=== PATIENT | male | born 1950 | race Caucasian/White ===

== ENCOUNTER 2019-04-18 17:26 | Inpatient (IN) | payer MEDICAID ==
[2019-04-17 22:30] VITALS: BMI 26.1
[~2019-04-18] VITALS: Ht 170.2 cm; Wt 80.5 kg
[~2019-04-18 17:26] MED LIST: ATOR-2 PO; CARV12.598 PO; CLOP75TA27 PO; HYDR-3670 PO; HYDR-4011 PO; ISOS10TA2 PO; LAS20 PO; PANT40SU PO; PANT40TA4 PO; PRED10TA PO; RIVA15TA PO
[2019-04-18 17:28] VITALS: Ht 170.2 cm; Wt 80.5 kg
--- NOTE | 2019-04-18 17:37 | ERD ---
ER Documentation Chief Complaint Chief Complaint Left knee pain HPI The patient is a 69-year-old male, presenting to the ER because of left knee pain for the last 3 weeks, seen at multiple ER and was given Medrol Dosepak with good response. However, when he finished the medication, the pain came back. He is unable to ambulate for the last 2 days because of the pain on the left knee, complains of bilateral foot pain today. He had similar symptoms previously from gouty attack, denies fever, chills, neck pain, chest pain, abdominal pain, vomiting, dysuria, diarrhea. He denies smoking or drinking, denies any trauma Past medical history: Gout, history of CHF, atrial fibrillation, right inguinal hernia, dyslipidemia, hypertension, chronic kidney disease Past surgical history: 3 stent PCI in March 2018 ROS All systems reviewed and are negative except as per history of present illness. Medications Home Meds Active Scripts Hydrocodone/Acetaminophen (Dalton 5-325 Tablet) 1 Each Tablet, 1 TAB PO Q6H PRN for PAIN, #7 TAB Prov:CEM GRIMES MD 04/18/19 Allergies Allergies: Coded Allergies: acetaminophen (Verified Allergy, Unknown, 04/18/19) hydrocodone (Verified Allergy, Unknown, 04/18/19) lisinopril (Verified Allergy, Unknown, 04/18/19) losartan (Verified Allergy, Unknown, 04/18/19) morphine (Verified Allergy, Unknown, 04/18/19) tramadol (Verified Allergy, Unknown, 04/18/19) Physical Exam Vitals Vital Signs Date Temp Pulse Resp B/P (MAP) Pulse Ox O2 O2 Flow FiO2 Time Delivery Rate 04/18/19 92 20 108/55 99 Room Air 18:32 (72) 04/18/19 98.6 80 18 146/81 98 17:28 (102) Physical Exam Const: No acute distress. Head: Atraumatic. Eyes: Normal Conjunctiva. ENT: Normal External Ears, Nose and Mouth. Neck: Full range of motion. No meningismus. Resp: Clear to auscultation bilaterally. Cardio: Regular rate and rhythm. Abd: Soft, non distended, normal bowel sounds, non tender. Skin: No petechiae or rashes. Back: No midline or flank tenderness. Ext: No cyanosis, or edema. Left knee is edematous/erythematous, no calf tenderness. Right medial foot is with vague tenderness, no edema/erythematous. Left foot is with vague tenderness, no calf tenderness Neur: Awake and alert. No focal deficit Psych: Normal Mood and Affect. Result Diagram: 04/18/19174204/18/191742 Results 24 hrs Laboratory Tests Test 04/18/19 17:41 04/18/19 17:43 POC Venous Lactate 1.3 mmol/L White Blood Count 9.0 10^3/ul Red Blood Count 5.09 10^6/ul Hemoglobin 15.3 g/dl Hematocrit 45.6 % Mean Corpuscular Volume 89.6 fl Mean Corpuscular Hemoglobin 30.1 pg Mean Corpuscular Hemoglobin Concent 33.6 g/dl Red Cell Distribution Width 11.9 % Platelet Count 263 10^3/UL Mean Platelet Volume 9.3 fl Immature Granulocytes % 0.600 % Neutrophils % 79.5 % Lymphocytes % 13.3 % Monocytes % 5.8 % Eosinophils % 0.6 % Basophils % 0.2 % Nucleated Red Blood Cells % 0.0 /100WBC Immature Granulocytes # 0.050 10^3/ul Neutrophils # 7.1 10^3/ul Lymphocytes # 1.2 10^3/ul Monocytes # 0.5 10^3/ul Eosinophils # 0.1 10^3/ul Basophils # 0.0 10^3/ul Nucleated Red Blood Cells # 0.0 10^3/ul Erythrocyte Sedimentation Rate 36 mm/Hr Sodium Level 135 mmol/L Potassium Level 4.2 mmol/L Chloride Level 98 mmol/L Carbon Dioxide Level 26 mmol/L Anion Gap 11 Blood Urea Nitrogen 27 mg/dl Creatinine 1.44 mg/dl Est Glomerular Filtrat Rate mL/min mL/min Glucose Level 149 mg/dl Uric Acid 8.9 mg/dl Calcium Level 9.5 mg/dl Current Medications Medications Dose Sig/Sheldon Start Time Status Last (Trade) Ordered Route PRN Stop Time Admin Dose Reason Admin 0.5 mg ONCE STAT 04/18/19 DC 04/18/19 Hydromorphone IV 17:46 18:38 HCl 04/18/19 17:49 (Dilaudid) Procedures/MDM MEDICAL MAKING DECISION: The patient is a 69-year-old male, presenting with acute gouty arthritis of the left knee, bilateral feet pain of unclear etiology. He was treated with Dilaudid 0.5 mg IV for pain with good response. He is unable to ambulate, therefore declined to go home, wanted to be admitted to a assisted facility The differential diagnoses considered include but are not limited to gouty arthritis, septic arthritis, effusion, sprain, strain, internal derangement Departure Diagnosis: Primary Impression: Gout attack Additional Impression: Pain in both feet Condition: Stable Comments I discussed the findings with the patient. I notified the patient with Dr. Molina at 8 PM via [employer] , who was made aware of the lab, the treatment, the patient condition. The patient is admitted to [facility] Disclaimer: Inadvertent spelling and grammatical errors are likely due to EHR/dictation software use and do not reflect on the overall quality of patient care. Also, please note that the electronic time recorded on this note does not necessarily reflect the actual time of the patient encounter. CEM GRIMES MD Apr 18, 2019 17:37
[2019-04-18] MEDS ORDERED: HYDROmorphONE 0.5 MG/0.5 ML SYG IV STA (17:46)
--- NOTE | 2019-04-18 20:37 | HP ---
Date/Time of Note Date/Time of Note DATE: 04/18/19 TIME: 20:36 Assessment/Plan VTE Prophylaxis SCD applied (from Nsg): Yes Pharmacological prophylaxis: NA/contraindicated Pharm contraindication: low risk/ambulating Lines/Catheters IV Catheter Type (from Nrsg): Saline Lock Assessment/Plan Hospital Course This is a 69-year-old male being admitted to the [facility] floor for: 1. acute gout attack: Uric acid elevated at 8.9. Will check ESR. Given patient's CKD, will initiate the patient on prednisone 40 mg p.o. daily. We will hold patient's Plavix and Xarelto so that we can tap the left knee. Orthopedic surgery Dr. Frank has been consulted to help Left knee joint effusion. Consider initiation of allopurinol once his acute gout episode stabilized. check esr 2. ambulatory dysfunction: secondary to gout attack. Patient has significant pain of his left knee decreased range of motion secondary to effusion and pain. Prednisone at the current time. Orthopedic consultation for left knee tap. Consider MRI of the knee if indicated. 3. Large Left knee effusion: Orthopedic surgery consult for need to. Patient is afebrile. This is likely secondary to patient's acute gout attack. We will also hold Plavix and Xarelto at the current time. 4: Patient has a history of gout. Uric acid level 8.9. Continue prednisone, will need to initiate patient on allopurinol once acute phase stabilized. 5. History of CHF: Continue carvedilol, hydralazine, Isordil, statin. Will hold Lasix at the current time as this could be exacerbating his gout. He does not appear to be acutely decompensated. 6. Coronary artery disease: Patient status post stent. Will hold Plavix for left knee joint tap. Continue patient's home medications. 7. Atrial fibrillation: Continue rate controlled, continue carvedilol, will hold Xarelto 8 dyslipidemia: Continue statin 9 hypertension: Continue beta-joesph, will hold Lasix at the current time 10. chronic kidney disease: Monitor renal function. Avoid NSAIDs. 11 DVT GI prophylaxis: SCDs, Protonix (on steroids) Further treatment strategy will be implemented as per the clinical course Result Diagram: 04/18/19 1743 04/18/19 1743 Results 24hrs Laboratory Tests Test 04/18/19 17:41 04/18/19 17:43 POC Venous Lactate 1.3 White Blood Count 9.0 Red Blood Count 5.09 Hemoglobin 15.3 Hematocrit 45.6 Mean Corpuscular Volume 89.6 Mean Corpuscular Hemoglobin 30.1 Mean Corpuscular Hemoglobin Concent 33.6 Red Cell Distribution Width 11.9 Platelet Count 263 Mean Platelet Volume 9.3 Immature Granulocytes % 0.600 H Neutrophils % 79.5 H Lymphocytes % 13.3 L Monocytes % 5.8 Eosinophils % 0.6 Basophils % 0.2 Nucleated Red Blood Cells % 0.0 Immature Granulocytes # 0.050 H Neutrophils # 7.1 Lymphocytes # 1.2 Monocytes # 0.5 Eosinophils # 0.1 Basophils # 0.0 Nucleated Red Blood Cells # 0.0 Erythrocyte Sedimentation Rate 36 H Sodium Level 135 Potassium Level 4.2 Chloride Level 98 Carbon Dioxide Level 26 Anion Gap 11 Blood Urea Nitrogen 27 H Creatinine 1.44 H Est Glomerular Filtrat Rate mL/min Glucose Level 149 Uric Acid 8.9 H Calcium Level 9.5 HPI/ROS Admit Date/Time Admit Date/Time Hx of Present Illness Chief complaint: Left knee pain x3 weeks The patient is a 69-year-old male, presenting to the ER because of left knee pain for the last 3 weeks, patient was seen at [facility] ER earlier this month and had a left knee drainage which showed pseudogout. As the symptoms do not get better he returned again to the emergency department and was given a Medrol Dosepak. He states that he did have improvement of his symptoms however after the medications were completed his pain came back. He reports that for the last few days it has been difficult for him to get up as he has a left knee difficult to move. He is not able to ambulate. He does also have left great toe pain and right medial foot pain. He denies any chest pain nausea vomiting or diarrhea. Denies any fevers. Does have a history of gout. He has adjusted his diet. He used to be on allopurinol in the past but was advised only to continue taking the medication until the prescription ended. Allergies: Acetaminophen, hydrocodone, lisinopril, losartan, morphine, tramadol Medications: Atorvastatin 80 mg p.o. daily Carvedilol 12.5 mg p.o. daily Plavix 75 mg p.o. daily Lasix 20 mg p.o. daily Hydralazine 10 mg p.o. every 8 hours as needed Highland 5-325 mg p.o. every 6 hours as needed Isordil 10 mg p.o. 3 times daily Protonix 40 mg p.o. daily Xarelto 15 mg p.o. daily Protonix 40 mg p.o. daily ROS Const: As per HPI Eyes : No pain discharge or redness or change in visual acuity ENT: No pain, sore throat, congestion, congestion, dysphagia or discharge Respiratory: No shortness of breath, cough, sputum, wheezing, or pleuritic pain Cardiovascular: No chest pain, palpitation, PND, or edema GI : no change in appetite, abdominal pain, nausea, vomiting, diarrhea, constipation, or change in the color his stool Genitourinary: No dysuria, hematuria, flank pain , discharge or CVA tenderness Musculoskeletal: As per HPI Skin: As per HPI Neuro: No headache, dizziness, syncope, seizure, focal weakness Endocrine: No polyuria, polydipsia, temperature intolerance Psych: No hallucination, depression, anxiety or suicidal ideation PMH/Family/Social Past Medical History Gout, history of CHF, atrial fibrillation, right inguinal hernia, dyslipidemia, hypertension, chronic kidney disease Coded Allergies: acetaminophen (Verified Allergy, Unknown, 04/18/19) hydrocodone (Verified Allergy, Unknown, 04/18/19) lisinopril (Verified Allergy, Unknown, 04/18/19) losartan (Verified Allergy, Unknown, 04/18/19) morphine (Verified Allergy, Unknown, 04/18/19) tramadol (Verified Allergy, Unknown, 04/18/19) Past Surgical History 3 stent PCI in March 2018 Family History Significant Family History: no pertinent family hx Social History Alcohol Use: none Smoking Status: Never smoker Drug Use: none Exam/Review of Systems Vital Signs Vitals Vital Signs Date Temp Pulse Resp B/P (MAP) Pulse Ox O2 O2 Flow FiO2 Time Delivery Rate 04/18/19 92 20 108/55 99 Room Air 18:32 (72) 04/18/19 98.6 17:28 Exam Exam General: Patient is a pleasant male currently lying in bed in no acute distress HEENT: Atraumatic, normocephalic. The pupils are equal, round and reactive. Extraocular motor are intact Neck: Supple with full range of motion. No rigidity or meningismus Chest: Nontender Lungs: Clear to auscultation bilaterally no crackles rales or wheezing Heart: Normal S1-S2, Regular rhythm and rate. No murmur, S3, or S4 Abdomen: Soft , nontender, nondistended , bowel sounds are present. No guarding no rebound tenderness , No masses or organomegaly. No costovertebral temporal angle mass Extremities: Left knee swelling, tenderness to touch, hot to touch Skin: Left knee swelling and tenderness and hot to touch, left great toe mild swelling and warmth noted Neurologic: Normal mental status, speech normal, cranial nerves II through XII are intact, motor and sensory are intact, no focal weakness Additional Comments PROCEDURE: XR foot CLINICAL INDICATION: Pain TECHNIQUE: AP, oblique and lateral views of the right foot COMPARISON: None FINDINGS: Mineralization is intact. No displaced fracture identified. Severe first MTP cartilage space narrowing with subchondral sclerosis and cystic change and marginal osteophyte formation. Hypertrophic change at the second MTP joint. Mild soft tissue fullness at the first MTP joint. Additional soft tissue fullness at the first IP joint with mild nonspecific cystic change in the medial head of the first proximal phalanx. Small calcaneal spur at the origin of the plantar fascia and small calcaneal enthesophyte at the insertion of Achilles tendon. Soft tissue fullness in the dorsum of the forefoot. Enthesopathy at the base of the fifth metatarsal. IMPRESSION: 1. No displaced fracture identified. 2. Severe first MTP osteoarthritis. 3. Enthesopathy at the base of the fifth metatarsal. 4. Mild soft tissue fullness in the first IP joint and nonspecific cystic change in the medial head of the first proximal phalanx more likely degenerative, although gout could potentially have similar appearance in the right clinical setting. 5. Additional degenerative changes as above. RPTAT: PP Physician Abram Date Time Electronically viewed and signed by Physician Abram on 04/18/2019 19:18 RG/ CC: CEM GRIMES MD [id number] PROCEDURE: Left knee x-ray CLINICAL INDICATION: PAIN TECHNIQUE: AP, lateral and oblique views of the left knee were obtained. COMPARISON: None FINDINGS: There is normal mineralization. No displaced fracture or dislocation is seen. Superior patellar enthesophyte. Mild osteophytic ridging in the patellofemoral and medial tibio-femoral joints. Faint lateral tibio-femoral chondrocalcinosis. There is large joint effusion. Prepatellar soft tissue swelling. Vascular calcifications. IMPRESSION: 1. Prepatellar soft tissue swelling. 2. Large joint effusion. 3. No displaced fracture or advanced degenerative change as above. 4. Follow-up MRI may be obtained if clinically indicated. RPTAT: PP Physician Abram Date Time Electronically viewed and signed by Brian Alejandro Physician on 04/18/2019 19:19 RG/ CC: CEM GRIMES MD [id number] OLIMPIA COE Apr 18, 2019 20:37
[2019-04-18] MEDS ORDERED: DOCUSATE SODIUM 100 MG CAP PO PRN (21:00)
[2019-04-18] MEDS ORDERED: NACL 0.9% 3 ML SYG IV SCH (21:00)
[2019-04-18] MEDS ORDERED: ACETAMINOPHEN 325 MG TAB PO PRN (21:00)
[2019-04-18] MEDS ORDERED: BISACODYL (EC) 5 MG TAB PO PRN (21:00)
[2019-04-18] MEDS ORDERED: ONDANSETRON 4 MG INJ IV PRN (21:00)
[2019-04-18] MEDS: predniSONE 20 MG TAB PO SCH (21:05)
[2019-04-18 22:33] VITALS: BP 125/59; PULSE 71; RESP 18
[2019-04-18] MEDS ORDERED: METOPROLOL (XL) 25 MG TAB PO SCH (23:00)
[2019-04-19] MEDS: ATORVASTATIN 80 MG TAB PO SCH ×2 (00:26→21:20)
[2019-04-19 01:42] VITALS: BP 117/61; PULSE 79; RESP 18
[2019-04-19] MEDS: PANTOPRAZOLE (EC) 40 MG TAB PO SCH (06:00)
[2019-04-19 07:28] VITALS: BP 129/69; PULSE 72; RESP 18
[2019-04-19] MEDS: predniSONE 20 MG TAB PO SCH (09:10)
[2019-04-19] MEDS: ISOSORBIDE DINITRATE 10 MG TAB PO SCH ×3 (09:12→21:21)
--- NOTE | 2019-04-19 14:02 | PN ---
Date/Time of Note Date/Time of Note DATE: 04/19/19 TIME: 13:48 Assessment/Plan VTE Prophylaxis Risk score (from [facility]0 risk: 4 SCD applied (from [facility]): Yes Pharmacological prophylaxis: other Pharm contraindication: other Lines/Catheters IV Catheter Type (from [facility] Saline Lock Urinary Cath still in place: No Assessment/Plan Assessment/Plan 1. Acute left knee arthritis with effusion, gout versus pseudogout, on prednisone and follow up with Dr. Frank, ?arthrocentesis 2. Acute kidney injury, improving, IVF 3. History of CHF: Continue carvedilol, hydralazine, Isordil 4. Coronary artery disease, s/p stents in 03/2018. Will hold Plavix for left knee joint tap. Continue patient's home medications. 5. Atrial fibrillation: Continue rate controlled, continue carvedilol, will hold Xarelto 6. Dyslipidemia: Continue statin 7. Hypertension, controlled 8. DVT GI prophylaxis: SCDs Result Diagram: 04/19/19 0456 04/19/19 0456 Results 24hrs Laboratory Tests Test 04/18/19 17:41 04/18/19 17:43 04/19/19 04:56 04/19/19 07:59 POC Venous Lactate 1.3 White Blood Count 9.0 7.9 Red Blood Count 5.09 4.88 Hemoglobin 15.3 14.8 Hematocrit 45.6 44.3 Mean Corpuscular 89.6 90.8 Volume Mean Corpuscular 30.1 30.3 Hemoglobin Mean Corpuscular 33.6 33.4 Hemoglobin Concent Red Cell 11.9 12.1 Distribution Width Platelet Count 263 242 Mean Platelet Volume 9.3 9.3 Immature 0.600 H 0.500 H Granulocytes % Neutrophils % 79.5 H 91.2 H Lymphocytes % 13.3 L 6.3 L Monocytes % 5.8 2.0 Eosinophils % 0.6 0.0 Basophils % 0.2 0.0 Nucleated Red Blood 0.0 0.0 Cells % Immature 0.050 H 0.040 H Granulocytes # Neutrophils # 7.1 7.2 Lymphocytes # 1.2 0.5 L Monocytes # 0.5 0.2 L Eosinophils # 0.1 0.0 Basophils # 0.0 0.0 Nucleated Red Blood 0.0 0.0 Cells # Erythrocyte 36 H Sedimentation Rate Sodium Level 135 135 Potassium Level 4.2 4.1 Chloride Level 98 102 Carbon Dioxide Level 26 23 Anion Gap 11 10 Blood Urea Nitrogen 27 H 30 H Creatinine 1.44 H 1.24 Est Glomerular Filtrat Rate mL/min Glucose Level 149 203 Uric Acid 8.9 H Calcium Level 9.5 9.1 Hemoglobin A1c 5.7 Magnesium Level 2.1 Total Bilirubin 1.4 H Direct Bilirubin 0.00 Indirect Bilirubin 1.4 H Aspartate Amino 21 Transf (AST/SGOT) Alanine 15 Aminotransferase (AL T/SGPT) Alkaline Phosphatase 78 Total Protein 6.3 Albumin 3.6 Globulin 2.70 Albumin/Globulin 1.33 Ratio Triglycerides Level 87 Cholesterol Level 124 LDL Cholesterol, 75 Calculated HDL Cholesterol 32 Cholesterol/HDL 3.8 Ratio Thyroid Stimulating 0.792 Hormone (TSH) Prothrombin Time 17.1 H Prothrombin Time 1.3 Ratio INR International 1.38 Normalized Ratio Activated 36.9 H Partial Thromboplast Time Subjective 24 Hr Interval Summary Free Text/Dictation left knee pain, no shortness of breath or chest pain Exam/Review of Systems Exam Vitals Vital Signs Date Temp Pulse Resp B/P (MAP) Pulse Ox O2 O2 Flow FiO2 Time Delivery Rate 04/19/19 98.6 72 18 129/69 98 Room Air 07:28 (89) Constitutional: alert, oriented, well developed Psych: no complaints, nl mood/affect Head: normocephalic, atraumatic Eyes: nl conjunctiva, EOMI, nl lids, PERRL ENMT: nl external ears & nose, nl lips & teeth, nl nasal mucosa & septum Neck: supple, non-tender Respiratory: clear to auscultation, normal air movement; No congested cough, No crackles/rales, No diminished breath sounds, No intercostal retraction, No labored breathing, No respirations, No tactile fremitus, No wheezing, No other Cardiovascular: nl pulses, irregular rhythm; No bruits, No diastolic murmur, No edema, No gallop, No jugular venous distention (JVD), No murmurs/extra sounds, No rub, No systolic murmur, No S3, No S4, No other Gastrointestinal: soft, nl liver, spleen Musculoskeletal: other (left knee swelling, warmth) Neurological: [employer]ICIAN II-XII intact, nl mental status, nl speech, nl strength Results Results 24hrs Laboratory Tests Test 04/18/19 17:41 04/18/19 17:43 04/19/19 04:56 04/19/19 07:59 POC Venous Lactate 1.3 White Blood Count 9.0 7.9 Red Blood Count 5.09 4.88 Hemoglobin 15.3 14.8 Hematocrit 45.6 44.3 Mean Corpuscular 89.6 90.8 Volume Mean Corpuscular 30.1 30.3 Hemoglobin Mean Corpuscular 33.6 33.4 Hemoglobin Concent Red Cell 11.9 12.1 Distribution Width Platelet Count 263 242 Mean Platelet Volume 9.3 9.3 Immature 0.600 H 0.500 H Granulocytes % Neutrophils % 79.5 H 91.2 H Lymphocytes % 13.3 L 6.3 L Monocytes % 5.8 2.0 Eosinophils % 0.6 0.0 Basophils % 0.2 0.0 Nucleated Red Blood 0.0 0.0 Cells % Immature 0.050 H 0.040 H Granulocytes # Neutrophils # 7.1 7.2 Lymphocytes # 1.2 0.5 L Monocytes # 0.5 0.2 L Eosinophils # 0.1 0.0 Basophils # 0.0 0.0 Nucleated Red Blood 0.0 0.0 Cells # Erythrocyte 36 H Sedimentation Rate Sodium Level 135 135 Potassium Level 4.2 4.1 Chloride Level 98 102 Carbon Dioxide Level 26 23 Anion Gap 11 10 Blood Urea Nitrogen 27 H 30 H Creatinine 1.44 H 1.24 Est Glomerular Filtrat Rate mL/min Glucose Level 149 203 Uric Acid 8.9 H Calcium Level 9.5 9.1 Hemoglobin A1c 5.7 Magnesium Level 2.1 Total Bilirubin 1.4 H Direct Bilirubin 0.00 Indirect Bilirubin 1.4 H Aspartate Amino 21 Transf (AST/SGOT) Alanine 15 Aminotransferase (AL T/SGPT) Alkaline Phosphatase 78 Total Protein 6.3 Albumin 3.6 Globulin 2.70 Albumin/Globulin 1.33 Ratio Triglycerides Level 87 Cholesterol Level 124 LDL Cholesterol, 75 Calculated HDL Cholesterol 32 Cholesterol/HDL 3.8 Ratio Thyroid Stimulating 0.792 Hormone (TSH) Prothrombin Time 17.1 H Prothrombin Time 1.3 Ratio INR International 1.38 Normalized Ratio Activated 36.9 H Partial Thromboplast Time Medications Medication Current Medications IV Flush (NS 3 ml) 3 ml PER PROTOCOL IV ; Start 04/18/19 at 21:00 Ondansetron HCl (Zofran Inj) 4 mg Q6H PRN IV NAUSEA/VOMITING; Start 04/18/19 at 21:00 Hydromorphone HCl (Dilaudid) 0.5 mg Q4H PRN IV .SEVERE PAIN 7-10; Start 04/18/19 at 21:00 Docusate Sodium (Colace) 100 mg Q12H PRN PO .CONSTIPATION; Start 04/18/19 at 21:00 Bisacodyl (Dulcolax) 5 mg DAILY PRN PO .CONSTIPATION; Start 04/18/19 at 21:00 Pantoprazole (Protonix Tab) 40 mg DAILY@06 PO ; Start 04/19/19 at 06:00 Prednisone (Prednisone) 40 mg DAILY PO Last administered on 04/19/19 09:10; Admin Dose 40 MG; Start 04/18/19 at 21:00; Stop 04/25/19 at 20:59 Atorvastatin Calcium (Lipitor) 80 mg HS PO Last administered on 04/19/19 00:26; Admin Dose 80 MG; Start 04/19/19 at 00:00 Carvedilol (Coreg) 12.5 mg BID PO Last administered on 04/19/19 09:12; Admin Dose 12.5 MG; Start 04/19/19 at 00:00 Isosorbide Dinitrate (Isordil) 10 mg TID PO Last administered on 04/19/19 13:27; Admin Dose 10 MG; Start 04/19/19 at 09:00 Hydralazine HCl (Apresoline) 10 mg Q8 PO Last administered on 04/19/19 13:27; Admin Dose 10 MG; Start 04/19/19 at 14:00 CATHERINE DIXON MD Apr 19, 2019 13:59
[2019-04-19 14:28] VITALS: BP 109/63; PULSE 55; RESP 18
[2019-04-19] MEDS ORDERED: PE/SHARK OIL/MO/PETROL 30 GM OINT PR PRN (17:00)
[2019-04-19] MEDS ORDERED: BETAMET NA PHOS/AC(6 MG/ML) 5ML INJ INJ ONE (19:00)
[2019-04-19] MEDS ORDERED: BUPIVACAINE 0.5%/EPI (SDV) 30 ML INJ INJ ONE (19:00)
[2019-04-19 19:10] VITALS: BP 139/80; PULSE 66; RESP 18
[2019-04-20 01:09] VITALS: BP 131/78; PULSE 78; RESP 18
[2019-04-20] MEDS: PANTOPRAZOLE (EC) 40 MG TAB PO SCH (06:51)
[2019-04-20] MEDS: HYDROmorphONE 0.5 MG/0.5 ML SYG IV PRN ×2 (06:57→20:40)
[2019-04-20 07:08] VITALS: BP 147/86; PULSE 75; RESP 15
[2019-04-20] MEDS: ISOSORBIDE DINITRATE 10 MG TAB PO SCH ×3 (09:02→21:51)
[2019-04-20] MEDS: predniSONE 20 MG TAB PO SCH (09:03)
--- NOTE | 2019-04-20 13:24 | PN ---
Date/Time of Note Date/Time of Note DATE: 04/20/19 TIME: 13:10 Assessment/Plan VTE Prophylaxis Risk score (from Ns)>0 risk: 4 SCD applied (from Ns): Yes Pharmacological prophylaxis: rivaroxaban Lines/Catheters IV [facility]from [facility] Saline Lock Urinary Cath still in place: No Assessment/Plan Assessment/Plan 1. Acute left knee arthritis with effusion, was diagnosed as pseudogout from recent arthrocentesis, s/p left knee injection on 04/19/2019, improving, taper down oral steroid 2. Acute kidney injury, improved 3. History of CHF: Continue carvedilol, hydralazine, Isordil 4. Coronary artery disease, s/p stents in 03/2018. resume plavix 5. Atrial fibrillation: Continue rate controlled, continue carvedilol, on Xarelto 6. Dyslipidemia: Continue statin 7. Hypertension, controlled 8. DVT GI prophylaxis: xarelto 9. PT today, D/C home tomorrow Result Diagram: 04/20/19 0437 04/20/19 0437 Results 24hrs Laboratory Tests Test 04/20/19 04:37 White Blood Count 11.8 #H Red Blood Count 4.54 L Hemoglobin 13.8 L Hematocrit 40.8 L Mean Corpuscular Volume 89.9 Mean Corpuscular Hemoglobin 30.4 Mean Corpuscular Hemoglobin Concent 33.8 Red Cell Distribution Width 11.9 Platelet Count 262 Mean Platelet Volume 9.3 Immature Granulocytes % 0.600 H Neutrophils % 90.7 H Lymphocytes % 5.1 L Monocytes % 3.5 Eosinophils % 0.0 Basophils % 0.1 Nucleated Red Blood Cells % 0.0 Immature Granulocytes # 0.070 H Neutrophils # 10.7 H Lymphocytes # 0.6 L Monocytes # 0.4 Eosinophils # 0.0 Basophils # 0.0 Nucleated Red Blood Cells # 0.0 Erythrocyte Sedimentation Rate 44 H Sodium Level 137 Potassium Level 4.1 Chloride Level 101 Carbon Dioxide Level 28 Anion Gap 8 Blood Urea Nitrogen 37 H Creatinine 1.19 Est Glomerular Filtrat Rate mL/min Glucose Level 168 Calcium Level 9.4 Subjective 24 Hr Interval Summary Free Text/Dictation left knee pain Exam/Review of Systems Exam Vitals Vital Signs Date Temp Pulse Resp B/P (MAP) Pulse Ox O2 O2 Flow FiO2 Time Delivery Rate 04/20/19 98.0 75 15 147/86 96 Room Air 07:08 (106) Intake and Output 04/19/19 04/19/19 04/20/19 1515:00 23:00 07:00 IntakeIntake Total 1080 ml 480 ml 400 ml OutputOutput Total 900 ml 200 ml 950 ml BalanceBalance 180 ml 280 ml -550 ml Constitutional: alert, oriented, well developed Head: normocephalic, atraumatic Eyes: nl conjunctiva, EOMI, nl lids ENMT: nl external ears & nose, nl lips & teeth, nl nasal mucosa & septum Neck: supple, non-tender Respiratory: clear to auscultation, normal air movement; No congested cough, No crackles/rales, No diminished breath sounds, No intercostal retraction, No labored breathing, No respirations, No tactile fremitus, No wheezing, No other Cardiovascular: regular rate and rhythm, nl pulses; No bruits, No diastolic murmur, No edema, No gallop, No irregular rhythm, No jugular venous distention (JVD), No murmurs/extra sounds, No rub, No systolic murmur, No S3, No S4, No other Gastrointestinal: soft, nl liver, spleen, non-tender Extremities: normal pulses, other (less swelling on left knee) Neurological: INSOLE AND OUTSOLE PREPARER II-XII intact, nl mental status, nl speech, nl strength Results Results 24hrs Laboratory Tests Test 04/20/19 04:37 White Blood Count 11.8 #H Red Blood Count 4.54 L Hemoglobin 13.8 L Hematocrit 40.8 L Mean Corpuscular Volume 89.9 Mean Corpuscular Hemoglobin 30.4 Mean Corpuscular Hemoglobin Concent 33.8 Red Cell Distribution Width 11.9 Platelet Count 262 Mean Platelet Volume 9.3 Immature Granulocytes % 0.600 H Neutrophils % 90.7 H Lymphocytes % 5.1 L Monocytes % 3.5 Eosinophils % 0.0 Basophils % 0.1 Nucleated Red Blood Cells % 0.0 Immature Granulocytes # 0.070 H Neutrophils # 10.7 H Lymphocytes # 0.6 L Monocytes # 0.4 Eosinophils # 0.0 Basophils # 0.0 Nucleated Red Blood Cells # 0.0 Erythrocyte Sedimentation Rate 44 H Sodium Level 137 Potassium Level 4.1 Chloride Level 101 Carbon Dioxide Level 28 Anion Gap 8 Blood Urea Nitrogen 37 H Creatinine 1.19 Est Glomerular Filtrat Rate mL/min Glucose Level 168 Calcium Level 9.4 Medications Medication Current Medications IV Flush (NS 3 ml) 3 ml PER PROTOCOL IV ; Start 04/18/19 at 21:00 Ondansetron HCl (Zofran Inj) 4 mg Q6H PRN IV NAUSEA/VOMITING; Start 04/18/19 at 21:00 Hydromorphone HCl (Dilaudid) 0.5 mg Q4H PRN IV .SEVERE PAIN 7-10 Last administered on 04/20/19 06:57; Admin Dose 0.5 MG; Start 04/18/19 at 21:00 Docusate Sodium (Colace) 100 mg Q12H PRN PO .CONSTIPATION; Start 04/18/19 at 21:00 Bisacodyl (Dulcolax) 5 mg DAILY PRN PO .CONSTIPATION; Start 04/18/19 at 21:00 Pantoprazole (Protonix Tab) 40 mg DAILY@06 PO Last administered on 04/20/19 06:51; Admin Dose 40 MG; Start 04/19/19 at 06:00 Prednisone (Prednisone) 40 mg DAILY PO Last administered on 04/20/19 09:03; Admin Dose 40 MG; Start 04/18/19 at 21:00; Stop 04/25/19 at 20:59 Atorvastatin Calcium (Lipitor) 80 mg HS PO Last administered on 04/19/19at 2 1:20; Admin Dose 80 MG; Start 04/19/19 at 00:00 Carvedilol (Coreg) 12.5 mg BID PO Last administered on 04/20/19 09:03; Admin Dose 12.5 MG; Start 04/19/19 at 00:00 Isosorbide Dinitrate (Isordil) 10 mg TID PO Last administered on 04/20/19 09:02; Admin Dose 10 MG; Start 04/19/19 at 09:00 Hydralazine HCl (Apresoline) 10 mg Q8 PO Last administered on 04/20/19 06:52; Admin Dose 10 MG; Start 04/19/19 at 14:00 Phenyleph/Shark Oil/Min Oil/Petrol (Formulation R Oint) 1 applic PRN PRN [place] bowel movment; Start 04/19/19 at 17:00 CATHERINE DIXON MD Apr 20, 2019 13:21
[2019-04-20 15:03] VITALS: BP 117/71; PULSE 73; RESP 16
[2019-04-20 19:10] VITALS: BP 138/67; PULSE 70; RESP 20
[2019-04-20] MEDS: ATORVASTATIN 80 MG TAB PO SCH (21:53)
[2019-04-20] MEDS: CARBOXYMETHYLCELLULOSE 0.5% 0.4 ML OPH BOTH EYES PRN (23:11)
[2019-04-21 02:00] VITALS: BP 117/65; PULSE 62; RESP 18
[2019-04-21 06:40] VITALS: BP 131/82; PULSE 60; RESP 16
[2019-04-21] MEDS: PANTOPRAZOLE (EC) 40 MG TAB PO SCH (06:43)
[2019-04-21 08:21] VITALS: BP 127/78; PULSE 62; RESP 18
[2019-04-21] MEDS: ISOSORBIDE DINITRATE 10 MG TAB PO SCH ×2 (08:50→12:56)
[2019-04-21] MEDS ORDERED: CLOPIDOGREL 75 MG TAB GTB SCH (09:00)
[2019-04-21] MEDS ORDERED: predniSONE 20 MG TAB PO SCH ×2 (09:00)
--- NOTE | 2019-04-21 10:45 | PN ---
Date/Time of Note Date/Time of Note DATE: 04/21/19 TIME: 10:44 Assessment/Plan VTE Prophylaxis Risk score (from Ns)>0 risk: 2 SCD applied (from Ns): Yes Pharmacological prophylaxis: rivaroxaban Lines/Catheters IV Catheter Type (from Nrs): Saline Lock Urinary Cath still in place: No Assessment/Plan Hospital Course SUBJECTIVE: No acute distress. Patient has been ambulating in the room. OBJECTIVE: Vital signs-see below PHYSICAL EXAM: Constitutional: Adequately built,not in acute distress. HEENT: Head atraumatic and normocephalic. Eyes: Extraocular muscles intact. Anicteric sclerae. Pupils equal bilaterally, reactive to light. NECK: Supple without lymph node. CHEST: Clear and good breath sounds equally. No wheezing. No rhonchi. HEART: S1, S2. Regular rate and rhythm. ABDOMEN: Soft/non tender with no rebound tenderness. Bowel sounds were present. EXTREMITIES: No cyanosis, clubbing or edema. NEUROLOGIC: Alert and oriented x3. No focal deficit. No sensory deficit. PSYCHOSOCIAL: No signs of depression. INTEGUMENTARY: No open wounds. ASSESSMENT AND PLAN:69 yp M w/recent L knee pseudogout, admitted w/L knee pain. Acute left knee arthritis with effusion, was diagnosed as pseudogout from recent arthrocentesis, s/p left knee injection on 04/19/2019 - Improved -taper down oral steroid -PT Acute kidney injury -resolved CHF -compensated - Continue carvedilol, hydralazine, Isordil Coronary artery disease, s/p stents in 03/2018 -conr. plavix/statin/bb Atrial fibrillation -stable -continue carvedilol, on Xarelto Dyslipidemia - Continue statin Hypertension - controlled -con.antihypertensives DVT GI prophylaxis: xarelto Disposition: Discharge planning with home health physical therapy, frontwheel walker with patient's on crutches available at home. Patient was seen in collaboration with Dr. Portillo. Result Diagram: 04/20/197 04/20/19 0437 Results 24hrs Laboratory Tests Test 04/20/19 23:08 Bedside Glucose 189 Exam/Review of Systems Exam Vitals Vital Signs Date Temp Pulse Resp B/P (MAP) Pulse Ox O2 O2 Flow FiO2 Time Delivery Rate 04/21/19 98.1 62 18 127/78 96 Room Air 08:21 (94) Intake and Output 04/20/19 04/20/19 04/21/19 1515:00 23:00 07:00 IntakeIntake Total 580 ml 500 ml 650 ml OutputOutput Total 300 ml 600 ml 1000 ml BalanceBalance 280 ml -100 ml -350 ml Results Results 24hrs Laboratory Tests Test 04/20/19 23:08 Bedside Glucose 189 Medications Medication Current Medications IV Flush (NS 3 ml) 3 ml PER PROTOCOL IV ; Start 04/18/19 at 21:00 Ondansetron HCl (Zofran Inj) 4 mg Q6H PRN IV NAUSEA/VOMITING; Start 04/18/19 at 21:00 Hydromorphone HCl (Dilaudid) 0.5 mg Q4H PRN IV .SEVERE PAIN 7-10 Last administered on 04/20/19at 20:40; Admin Dose 0.5 MG; Start 04/18/19 at 21:00 Docusate Sodium (Colace) 100 mg Q12H PRN PO .CONSTIPATION; Start 04/18/19 at 21:00 Bisacodyl (Dulcolax) 5 mg DAILY PRN PO .CONSTIPATION; Start 04/18/19 at 21:00 Pantoprazole (Protonix Tab) 40 mg DAILY@06 PO Last administered on 04/21/19at 06:43; Admin Dose 40 MG; Start 04/19/19 at 06:00 Atorvastatin Calcium (Lipitor) 80 mg HS PO Last administered on 04/20/19at 21:53; Admin Dose 80 MG; Start 04/19/19 at 00:00 Carvedilol (Coreg) 12.5 mg BID PO Last administered on 04/21/19at 08:50; Admin Dose 12.5 MG; Start 04/19/19 at 00:00 Isosorbide Dinitrate (Isordil) 10 mg TID PO Last administered on 04/21/19 08:50; Admin Dose 10 MG; Start 04/19/19 at 09:00 Hydralazine HCl (Apresoline) 10 mg Q8 PO Last administered on 04/21/19 06:47; Admin Dose 10 MG; Start 04/19/19 at 14:00 Phenyleph/Shark Oil/Min Oil/Petrol (Formulation R Oint) 1 applic PRN PRN NM bowel movment; Start 04/19/19 at 17:00 Rivaroxaban (Xarelto) 15 mg WITH DINNER PO ; Start 04/21/19 at 17:55 Clopidogrel Bisulfate (plaVIX) 75 mg DAILY GTB Last administered on 04/21/19at 08:49; Admin Dose 75 MG; Start 04/21/19 at 09:00 Prednisone (Prednisone) 20 mg DAILY PO Last administered on 04/21/19at 08:49; Admin Dose 20 MG; Start 04/21/19 at 09:00 Eye Lubricant (Refresh Plus) 1 drop QID PRN BOTH EYES EYE IRRITATION Last administered on 04/20/19at 23:11; Admin Dose 1 DROP; Start 04/20/19 at 15:00 ASIA BOSE NP Apr 21, 2019 10:45
--- NOTE | 2019-04-21 10:48 | PDOCDIS ---
Discharge Instructions CONDITION [id number] Patient Condition: [id number] Stable HOME CARE INSTRUCTIONS: [id number] Diet Instructions: [id number] Low Fat /Cholesterol FOLLOW UP/APPOINTMENTS Follow-up Plan Follow-up with primary care physician in 1 week ASIA BOSE NP Apr 21, 2019 10:48
[2019-04-21] MEDS: CARBOXYMETHYLCELLULOSE 0.5% 0.4 ML OPH BOTH EYES PRN (12:22)
[2019-04-21 12:58] VITALS: BP 125/77; PULSE 69; RESP 18
--- NOTE | 2019-04-21 14:26 | DS ---
Date/Time of Note Date/Time of Note DATE: 04/21/19 TIME: 14:23 Discharge Summary Admission/Discharge Info Admit Date/Time Apr 20, 2019 at 16:30 Discharge Date/Time Discharge Diagnosis Acute left knee arthritis with effusion, was diagnosed as pseudogout from r ecent arthrocentesis, s/p left knee injection on 04/19/2019 Acute kidney injury CHF Coronary artery disease, s/p stents in 03/2018 Atrial fibrillation Dyslipidemia Hypertension Patient Condition: Stable Hospital Course 69 yo M w/recent L knee pseudogout, admitted w/L knee pain. Patient was found with acute left knee arthritis with effusion, was diagnosed as pseudogout from recent arthrocentesis, he underwent left knee injection on 04/19/[address] Frank. Patient symptoms improved. He was also given tapered dose of steroids. Patient was then evaluated by physical therapist. Hospitalization was also noted for acute kidney injury which was resolved. Patient was continued on home medication for underlying CHF including Coreg, nitrates. Patient was also continued on Plavix, statin, beta-blockers for underlying coronary artery disease with stents in March 2018. Patient also was continued on beta-blockers and anticoagulation for underlying A. fib and his rate remained stable. Comorbidities managed per outpatient regimen. At this time, patient with improvement in symptoms. He is able to walk without any assistance. He will be discharged home with DME's and outpatient physical therapy. Approximately 60 m spent on coordinating the discharge on this patient. Patient is seen in collaboration with Dr. Portillo. Home Meds Active Scripts Prednisone* (Prednisone*) 10 Mg Tab, 10 MG PO DAILY, #6 TAB take prednisone 2 pills on day 1 and day 2 take 1 pill on day 3 and day 4 Prov:ASIA BOSE NP 04/21/19 Hydrocodone/Acetaminophen ([place] 5-325 Tablet) 1 Each Tablet, 1 TAB PO Q6H PRN for PAIN, #7 TAB Prov:CEM GRIMES MD 04/18/19 Reported Medications Clopidogrel Bisulfate (Clopidogrel) 75 Mg Tablet, 75 MG PO DAILY, #30 TAB 04/18/19 Rivaroxaban* (Xarelto*) 15 Mg Tablet, 15 MG PO DAILY, TAB 04/18/19 Atorvastatin* (Atorvastatin*) 80 Mg Tablet, 80 MG PO QHS, #30 TAB 04/18/19 Carvedilol* (Coreg*) 12.5 Mg Tablet, 12.5 MG PO BID, #60 TAB 04/18/19 Furosemide (Lasix) 20 Mg Tab, 20 MG PO DAILY, TAB 04/18/19 Isosorbide Dinitrate* (Isordil*) 10 Mg Tablet, 10 MG PO TID, TAB 04/18/19 Pantoprazole (Protonix) 40 Mg Tabec, 40 MG PO DAILY, TAB 04/18/19 Hydralazine Hcl* (Hydralazine Hcl*) 10 Mg Tablet, 10 MG PO Q8, #90 TAB 04/18/19 Discontinued Reported Medications Carvedilol* (Coreg*) 12.5 Mg Tablet, 12.5 MG PO DAILY, #60 TAB 04/18/19 Pantoprazole Sodium (Protonix) 40 Mg , 40 MG PO 04/18/19 Follow-up Plan Follow-up with primary care physician in 1 week Primary Care Provider Not On Staff Doctor Pending Labs Laboratory Tests Test 04/20/19 23:08 Bedside Glucose 189 mg/dL (70-220) ASIA BOSE NP Apr 21, 2019 14:26
[2019-04-21 14:57] VITALS: BP 124/68; PULSE 79; RESP 18
[2019-04-21] MEDS ORDERED: RIVAROXABAN 15 MG TABLET PO SCH (17:55)
--- NOTE | 2019-04-25 07:43 | CONS ---
DATE OF ADMISSION: 04/20/2019 DATE OF CONSULTATION: HISTORY OF PRESENT ILLNESS: The patient is a 69-year-old male who was admitted on 04/18/2019 when he came to the emergency room complaining of painful swelling involving his left knee. He is known to have gouty arthritis for more than 20 years, according to the patient. He obviously had an attack ab out 3 weeks ago and was seen at the [facility] and was treated with aspira tion with subsequent use of Medrol Dosepak; however, his pain has been persistent and he was not able to ambulate himself because of the pain. He has multiple medical problems including a known history of gouty arthritis, history of congestive heart failure, atrial fibrillation, right-sided inguinal hernia, dyslipidemia, hypertension, and general repair mechanic priyanka kidney disease. At the time of my evaluation, he was afebrile and there was no leukocytosis. There was an obvious mi ld to moderate effusion involving his left knee and the range of motion of the left knee was limited with pain. There were no signs of acute pyogenic process such as redness or increased warmth or acut e tenderness. The lab studies showed the elevated uric acid level. DIAGNOSTIC IMPRESSION: Gouty arthritis of the left knee. RECOMMENDATIONS FOR TREATMENT: Trial of steroid injection and this was carried out immediately follo wing my initial evaluation. If he has satisfactory symptomatic relief he could be up and around as t olerated and he could be discharged for further follow as an outpatient. Dictated By: SAGE HICKMAN/MULUGETA Conf#: [id number] DID#: [id number]
== END 2019-04-21 16:50 | disposition home health service (06) | DRG 554 ==
LOC: E/R 17:26 → MS1 20:07 → OBSVTOIN 04-20 16:30
PROVIDERS: ADMIT Family Medicine; ATTEND Family Medicine
DX: M13.862 Other specified arthritis, left knee (principal); I13.0 Hypertensive heart and chronic kidney disease with heart failure and stage 1 through stage 4 chronic kidney disease, or unspecified chronic kidney disease; N17.9 Acute kidney failure, unspecified; I48.91 Unspecified atrial fibrillation; E78.5 Hyperlipidemia, unspecified; I10 Essential (primary) hypertension; I25.10 Atherosclerotic heart disease of native coronary artery without angina pectoris; M10.9 Gout, unspecified; I50.9 Heart failure, unspecified; N18.9 Chronic kidney disease, unspecified; Z79.01 Long term (current) use of anticoagulants
CPT/HCPCS: 36415; 73562; 73630; 80048; 80053; 80061; 82962; 83036; 83605; 83735; 84443; 84560; 85025; 85610; 85651; 85730; 93005; 96374; 97116; 97162; 97530; G0378; J0702; J1170; J7512

== ENCOUNTER 2019-05-06 17:34 | Inpatient (IN) | payer MEDICAID, OTHER ==
[~2019-05-06] VITALS: Ht 175.3 cm; Wt 81.9 kg
[~2019-05-06 17:34] MED LIST changes: -PANT40SU PO
[2019-05-06] MEDS ORDERED: ONDANSETRON 4 MG INJ IV STA (18:10)
[2019-05-06] MEDS ORDERED: HYDROmorphONE 1 MG/ML SYG IV STA (18:10)
[2019-05-06] MEDS ORDERED: SOD CHLORIDE 0.9% 1,000 ML IV STA (18:10)
[2019-05-06] MEDS ORDERED: SOD CHLORIDE 0.9% 100 ML ONE (19:10)
[2019-05-06] MEDS ORDERED: IODIXANOL LOCM 100 ML BTL ONE (19:10)
[2019-05-06] MEDS ORDERED: ONDANSETRON 4 MG INJ IV PRN (20:00)
[2019-05-06] MEDS ORDERED: ACETAMINOPHEN 325 MG TAB PO PRN (20:00)
[2019-05-06] MEDS ORDERED: NACL 0.9% 3 ML SYG IV SCH (20:00)
--- NOTE | 2019-05-06 20:30 | ERD ---
ER Documentation Chief Complaint Chief Complaint inguinal hernia to the right side. sob, back pain HPI Patient is a 69-year-old male with coronary disease, CHF, hypertension, and A. fib who presents with "long-standing incarcerated hernia". The patient said that he said that he is usually able to retract it and push it back in but that 2 days ago he started with pain and he cannot push it back in this time. It is the right inguinal area. Is been worse since 1 PM today. He tried ice packs. Upon review of old medical records the patient had one previous visit to the ER on April 20 of this year. He says that his primary doctor is at [facility]. ROS All systems reviewed and are negative except as per history of present illness. Medications Home Meds Active Scripts Prednisone* (Prednisone*) 10 Mg Tab, 10 MG PO DAILY, #6 TAB take prednisone 2 pills on day 1 and day 2 take 1 pill on day 3 and day 4 Prov:ASIA BOSE NP 04/21/19 Hydrocodone/Acetaminophen ([place] 5-325 Tablet) 1 Each Tablet, 1 TAB PO Q6H PRN for PAIN, #7 TAB Prov:CEM GRIMES MD 04/18/19 Reported Medications Clopidogrel Bisulfate (Clopidogrel) 75 Mg Tablet, 75 MG PO DAILY, #30 TAB 04/18/19 Rivaroxaban* (Xarelto*) 15 Mg Tablet, 15 MG PO DAILY, TAB 04/18/19 Atorvastatin* (Atorvastatin*) 80 Mg Tablet, 80 MG PO QHS, #30 TAB 04/18/19 Carvedilol* (Coreg*) 12.5 Mg Tablet, 12.5 MG PO BID, #60 TAB 04/18/19 Furosemide (Lasix) 20 Mg Tab, 20 MG PO DAILY, TAB 04/18/19 Isosorbide Dinitrate* (Isordil*) 10 Mg Tablet, 10 MG PO TID, TAB 04/18/19 Pantoprazole (Protonix) 40 Mg Tabec, 40 MG PO DAILY, TAB 04/18/19 Hydralazine Hcl* (Hydralazine Hcl*) 10 Mg Tablet, 10 MG PO Q8, #90 TAB 04/18/19 Allergies Allergies: Coded Allergies: acetaminophen (Verified Allergy, Unknown, 04/18/19) hydrocodone (Verified Allergy, Unknown, 04/18/19) ibuprofen (Verified Allergy, Unknown, 05/06/19) lisinopril (Verified Allergy, Unknown, 04/18/19) losartan (Verified Allergy, Unknown, 04/18/19) morphine (Verified Allergy, Unknown, 04/18/19) tramadol (Verified Allergy, Unknown, 04/18/19) PMhx/Soc History of Surgery: Yes (RT inguinal hernia repair, tonsillectomy, RT wrist/hand sx, angiogram w/ 3s) Anesthesia Reaction: No Hx Neurological Disorder: No Hx Respiratory Disorders: No Hx Cardiac Disorders: Yes (CHF) Hx Psychiatric Problems: No Hx Miscellaneous Medical Probl: Yes (See note) Hx Alcohol Use: No Hx Substance Use: No Hx Tobacco Use: No Smoking Status: Never smoker FmHx Family History: diabetes Physical Exam Vitals Vital Signs Date Temp Pulse Resp B/P (MAP) Pulse Ox O2 O2 Flow FiO2 Time Delivery Rate 05/06/19 97.6 66 18 131/75 99 17:43 (93) Physical Exam Const: Moderate distress Head: Atraumatic Eyes: Normal Conjunctiva ENT: Normal External Ears, Nose and Mouth. Neck: Full range of motion. No meningismus. Resp: Clear to auscultation bilaterally Cardio: Regular rate and rhythm, no murmurs Abd: Bilateral inguinal hernias with large hernias in the right side is emeli ble to be reduced by myself at the bedside Skin: No petechiae or rashes Back: No midline or flank tenderness Ext: No cyanosis, or edema Neur: Awake and alert Psych: Normal Mood and Affect Result Diagram: 05/06/19 1825 05/06/19 182 Results 24 hrs Laboratory Tests Test 05/06/19 18:24 05/06/19 18:25 Urine Color STRAW Urine Clarity CLEAR Urine pH 8.0 Urine Specific [place] 1.011 Urine Ketones NEGATIVE mg/dL Urine Nitrite NEGATIVE mg/dL Urine Bilirubin NEGATIVE mg/dL Urine Urobilinogen NEGATIVE mg/dL Urine Leukocyte Esterase NEGATIVE Lizabeth/ul Urine Microscopic RBC 92 /HPF Urine Microscopic WBC 2 /HPF Urine Hemoglobin 2+ mg/dL Urine Glucose NEGATIVE mg/dL Urine Total Protein NEGATIVE mg/dl White Blood Count 9.9 10^3/ul Red Blood Count 4.64 10^6/ul Hemoglobin 14.1 g/dl Hematocrit 42.6 % Mean Corpuscular Volume 91.8 fl Mean Corpuscular Hemoglobin 30.4 pg Mean Corpuscular Hemoglobin Concent 33.1 g/dl Red Cell Distribution Width 12.6 % Platelet Count 179 10^3/UL Mean Platelet Volume 9.0 fl Immature Granulocytes % 1.000 % Neutrophils % 82.1 % Lymphocytes % 11.4 % Monocytes % 5.3 % Eosinophils % 0.1 % Basophils % 0.1 % Nucleated Red Blood Cells % 0.0 /100WBC Immature Granulocytes # 0.100 10^3/ul Neutrophils # 8.1 10^3/ul Lymphocytes # 1.1 10^3/ul Monocytes # 0.5 10^3/ul Eosinophils # 0.0 10^3/ul Basophils # 0.0 10^3/ul Nucleated Red Blood Cells # 0.0 10^3/ul Prothrombin Time 17.2 Sec Prothrombin Time Ratio 1.3 INR International Normalized Ratio 1.39 Activated Partial Thromboplast Time 26.1 Sec Sodium Level 137 mmol/L Potassium Level 4.2 mmol/L Chloride Level 102 mmol/L Carbon Dioxide Level 26 mmol/L Anion Gap 9 Blood Urea Nitrogen 32 mg/dl Creatinine 1.20 mg/dl Est Glomerular Filtrat Rate mL/min mL/min Glucose Level 126 mg/dl Calcium Level 9.3 mg/dl Total Bilirubin 0.9 mg/dl Direct Bilirubin 0.00 mg/dl Indirect Bilirubin 0.9 mg/dl Aspartate Amino Transf (AST/SGOT) 24 IU/L Alanine Aminotransferase (ALT/SGPT) 27 IU/L Alkaline Phosphatase 66 IU/L Troponin I 0.021 ng/ml Total Protein 6.5 g/dl Albumin 3.7 g/dl Globulin 2.80 g/dl Albumin/Globulin Ratio 1.32 Lipase 95 U/L Current Medications Medications Dose Sig/Sheldon Start Time Status Last (Trade) Ordered Route PRN Stop Time Admin Dose Reason Admin Sodium 1,000 ml @ Q1H STAT 05/06/19 DC 05/06/19 Chloride 1,000 mls/hr IV 18:10 05/06/19 18:24 19:09 1 mg ONCE STAT 05/06/19 DC 05/06/19 Hydromorphone IV 18:10 05/06/19 18:24 HCl 18:11 (Dilaudid) Ondansetron 4 mg ONCE STAT 05/06/19 DC 05/06/19 HCl (Zofran IV 18:10 05/06/19 18:24 Inj) 18:11 IV Flush 10 ml STK-MED 05/06/19 DC 05/06/19 (NS 10 ml) ONCE .ROUTE 19:10 05/06/19 19:38 19:11 Sodium 100 ml @ ud STK-MED 05/06/19 DC 05/06/19 Chloride ONCE .ROUTE 19:10 05/06/19 19:38 19:11 Iodixanol 100 ml STK-MED 05/06/19 DC 05/06/19 (Visipaque ONCE .ROUTE 19:10 05/06/19 19:38 Locm) 19:11 Ondansetron 4 mg ER BRIDGE 05/06/19 DC HCl (Zofran PRN IV 20:00 05/06/19 Inj) NAUSEA/VOMITI 20:13 NG Sodium 1,000 ml @ [id number] IV 05/06/19 Chloride 70 mls/hr 19:51 IV Flush 3 ml PER 05/06/19 (NS 3 ml) PROTOCOL IV 20:00 Ondansetron 4 mg Q6H PRN 05/06/19 HCl (Zofran IV 20:00 Inj) NAUSEA/VOMITI NG 650 mg Q6H PRN 05/06/19 DC Acetaminophen PO .PAIN 1-3 20:00 05/06/19 (Tylenol OR TEMP 20:28 Tab) 0.5 mg Q4H PRN 05/06/19 Hydromorphone IV .PAIN 20:00 HCl 7-10 (Dilaudid) Hydralazine 10 mg Q8 PO 05/06/19 UNV HCl 22:00 (Apresoline) Procedures/MDM CT abdomen pelvis pending radiology read at this time. Chest x-ray read by radiology. EKG read by me: Rate/Rhythm: Regular rate and rhythm Intervals: Normal Impression: No evidence of ischemia or arrhythmia Patient is a 69-year-old male with multiple comorbidities who presents with an irreducible right sided hernia. The patient will be admitted to the panel team. I spoke with Dr. Pride from general surgery who will schedule surgery. I was unable to reduce the hernia at the bedside with gentle pressure. Departure Diagnosis: Primary Impression: Irreducible inguinal hernia Additional Impression: Groin pain, lower right quadrant Condition: Serious JERRY REYES MD May 06, 2019 20:30
[2019-05-06 21:25] VITALS: BP 168/90; PULSE 86; RESP 20; Ht 175.3 cm; Wt 81.9 kg
[2019-05-06] MEDS: SOD CHLORIDE 0.9% 1,000 ML IV SCH (22:45)
--- NOTE | 2019-05-06 23:12 | HP ---
Date/Time of Note Date/Time of Note DATE: 05/06/19 TIME: 23:12 Assessment/Plan VTE Prophylaxis SCD applied (from Nsg): Yes Pharmacological prophylaxis: NA/contraindicated Pharm contraindication: low risk/ambulating Lines/Catheters IV Catheter Type (from Nrsg): Saline Lock Assessment/Plan Hospital Course This is a 69-year-old male being admitted to the telemetry floor for: #1 incarcerated right-sided inguinal hernia: Hernia is nonreducible. Patient at the current time does not appear to be septic. We will keep the patient n.p.o. IV fluid hydration with normal saline. Given that he also has a concurrent small bowel obstruction we will discuss with the patient regarding NG tube placement. Dr. Pride of general surgery is already been consulted. Will obtain cardiac clearance in the a.m. given his cardiac history we will consult . Will check echocardiogram #2 small bowel obstruction: Secondary to right-sided incarcerated hernia. We will discuss with the patient regarding placing an NG tube. Chest x-ray for confirmation. Will put on low wall suction. 3. history of of ambulatory dysfunction: Secondary to repeated gout attacks. Currently does report improvement in his ambulation though not completely back to normal. He was recently admitted for acute gout attack and required steroid injection. 4: Patient has a history of gout. We will hold prednisone at the current time, does not appear to be in any acute exacerbation. 5. History of CHF: Continue carvedilol, hydralazine, Isordil, statin. Will hold Lasix at the current time as this could be exacerbating his gout. He does not appear to be acutely decompensated. 6. Coronary artery disease: Patient status post stent. Will hold Plavix in preparation for surgery. Echocardiogram for cardiac clearance. 7. Atrial fibrillation: Continue rate controlled, continue carvedilol, will hold Xarelto 8 dyslipidemia: Continue statin 9 hypertension: Continue beta-joseph, will hold Lasix at the current time 10. chronic kidney disease: Monitor renal function. Avoid NSAIDs. 11 DVT GI prophylaxis: SCDs, Protonix Further treatment strategy will be implemented as per the clinical course Result Diagram: 05/06/19 18205/06/19 182 Results 24hrs Laboratory Tests Test 05/06/19 18:24 05/06/19 18:25 Urine Color STRAW Urine Clarity CLEAR Urine pH 8.0 Urine Specific [place] 1.011 Urine Ketones NEGATIVE Urine Nitrite NEGATIVE Urine Bilirubin NEGATIVE Urine Urobilinogen NEGATIVE Urine Leukocyte Esterase NEGATIVE Urine Microscopic RBC 92 H Urine Microscopic WBC 2 Urine Hemoglobin 2+ H Urine Glucose NEGATIVE Urine Total Protein NEGATIVE White Blood Count 9.9 Red Blood Count 4.64 L Hemoglobin 14.1 Hematocrit 42.6 Mean Corpuscular Volume 91.8 Mean Corpuscular Hemoglobin 30.4 Mean Corpuscular Hemoglobin Concent 33.1 Red Cell Distribution Width 12.6 Platelet Count 179 # Mean Platelet Volume 9.0 Immature Granulocytes % 1.000 H Neutrophils % 82.1 H Lymphocytes % 11.4 L Monocytes % 5.3 Eosinophils % 0.1 Basophils % 0.1 Nucleated Red Blood Cells % 0.0 Immature Granulocytes # 0.100 H Neutrophils # 8.1 H Lymphocytes # 1.1 Monocytes # 0.5 Eosinophils # 0.0 Basophils # 0.0 Nucleated Red Blood Cells # 0.0 Prothrombin Time 17.2 H Prothrombin Time Ratio 1.3 INR International Normalized Ratio 1.39 Activated Partial Thromboplast Time 26.1 Sodium Level 137 Potassium Level 4.2 Chloride Level 102 Carbon Dioxide Level 26 Anion Gap 9 Blood Urea Nitrogen 32 H Creatinine 1.20 Est Glomerular Filtrat Rate mL/min Glucose Level 126 Calcium Level 9.3 Total Bilirubin 0.9 Direct Bilirubin 0.00 Indirect Bilirubin 0.9 Aspartate Amino Transf (AST/SGOT) 24 Alanine Aminotransferase (ALT/SGPT) 27 Alkaline Phosphatase 66 Troponin I 0.021 Total Protein 6.5 Albumin 3.7 Globulin 2.80 Albumin/Globulin Ratio 1.32 Lipase 95 HPI/ROS Admit Date/Time Admit Date/Time May 06, 2019 at 19:50 Hx of Present Illness Chief complaint: Stuck hernia This is a 69-year-old male with a past medical history of coronary disease, CHF, hypertension, A. fib, gout, inguinal hernia who presents today with his hernia being stuck. Patient reports that he is usually able to push his hernia back into place but that over the last 2 days he was unable to push it back and he started experiencing pain. This is on the right side. Patient also reports that he has had a scrotal hernia for quite some time and he has been waiting to have it repaired but he has been unable to have it done at the [facility] secondary to authorization. He does report some nausea. He did report that prior to 2 days he was having normal bowel movements but now they have stopped. Allergies: Multiple, please see EMR Medications: Atorvastatin 80 mg p.o. nightly Carvedilol 12.5 mg p.o. twice daily Plavix 75 mg p.o. daily Lasix 20 mg p.o. daily [place] 53 25 p.o. every 6 hours as needed Isordil 10 mg p.o. 3 times daily Protonix 40 mg p.o. daily Prednisone 10 mg p.o. daily Xarelto 15 mg p.o. daily ROS Const: As per HPI Eyes : No pain discharge or redness or change in visual acuity ENT: No pain, sore throat, congestion, congestion, dysphagia or discharge Respiratory: No shortness of breath, cough, sputum, wheezing, or pleuritic pain Cardiovascular: No chest pain, palpitation, PND, or edema GI : As per HPI Genitourinary: As per HPI Musculoskeletal: No joint pain, back pain, neck pain, restricted range of motion in neck or joints Skin: No rash, bruising or hives Neuro: No headache, dizziness, syncope, seizure, focal weakness Endocrine: No polyuria, polydipsia, temperature intolerance Psych: No hallucination, depression, anxiety or suicidal ideation PMH/Family/Social Past Medical History Gout, history of CHF, atrial fibrillation, right inguinal hernia, dyslipidemia, hypertension, chronic kidney disease Medications Current Medications Sodium Chloride 1,000 ml @ 70 mls/hr [id number] IV Last administered on 05/06/19at 22:45; Admin Dose 70 MLS/HR; Start 05/06/19 at 19:51 IV Flush (NS 3 ml) 3 ml PER PROTOCOL IV ; Start 05/06/19 at 20:00 Ondansetron HCl (Zofran Inj) 4 mg Q6H PRN IV NAUSEA/VOMITING; Start 05/06/19 at 20:00 Hydromorphone HCl (Dilaudid) 0.5 mg Q4H PRN IV .PAIN 7-10; Start 05/06/19 at 20:00 Hydralazine HCl (Apresoline) 10 mg Q8 PO Last administered on 05/06/19at 22:45; Admin Dose 10 MG; Start 05/06/19 at 22:00 Carvedilol (Coreg) 12.5 mg BID PO Last administered on 05/06/19at 22:44; Admin Dose 12.5 MG; Start 05/06/19 at 22:30 Coded Allergies: acetaminophen (Verified Allergy, Unknown, 04/18/19) hydrocodone (Verified Allergy, Unknown, 04/18/19) ibuprofen (Verified Allergy, Unknown, 05/06/19) lisinopril (Verified Allergy, Unknown, 04/18/19) losartan (Verified Allergy, Unknown, 04/18/19) morphine (Verified Allergy, Unknown, 04/18/19) tramadol (Verified Allergy, Unknown, 04/18/19) Past Surgical History 3 stent PCI in March 2018 Family History Significant Family History: no pertinent family hx Social History Alcohol Use: none Smoking Status: Never smoker Drug Use: none Exam/Review of Systems Vital Signs Vitals Vital Signs Date Temp Pulse Resp B/P (MAP) Pulse Ox O2 O2 Flow FiO2 Time Delivery Rate 05/06/19 84 18 134/83 100 Room Air 21:16 (100) 05/06/19 97.6 20:37 Exam Exam General: Patient is currently lying in bed, he does report mild discomfort in his abdomen as well as his groin area HEENT: Atraumatic, normocephalic. The pupils are equal, round and reactive. Extraocular motor are intact Neck: Supple with full range of motion. No rigidity or meningismus Chest: Nontender Lungs: Clear to auscultation bilaterally no crackles rales or wheezing Heart: Normal S1-S2, Regular rhythm and rate. No murmur, S3, or S4 Abdomen: Soft , mild tenderness to palpation lower abdomen, nondistended , hypoactive bowel sounds no guarding no rebound tenderness , No masses or organomegaly. No costovertebral temporal angle mass Extremities: Normal to inspection, no edema no cyanosis Genitourinary: Right-sided nonreducible inguinal hernia, left-sided scrotal h ernia Neurologic: Normal mental status, speech normal, cranial nerves II through XII are intact, motor and sensory are intact, Additional Comments PROCEDURE: CT Abdomen and Pelvis Without Intravenous Contrast CLINICAL INDICATION: Abdominal pain. TECHNIQUE: Axial computed tomography images of the abdomen and pelvis without intravenous contrast. Sagittal and coronal reformatted images were created and reviewed. CTDIvol (mGy) = 16.48; total DLP (mGy-cm) = [address] exam was performed using one or more of the following dose reduction techniques: automated exposure control, adjustment of the mA and/or kV according to patient size, and/or use of iterative reconstruction technique. DICOM images are available. CONTRAST: 100 mL of Visipaque 320 was administered intravenously. COMPARISON: None FINDINGS: LUNG BASES: Unremarkable. No mass. No consolidation. ABDOMEN: LIVER: Unremarkable. GALLBLADDER AND BILE DUCTS: Unremarkable. No calcified stones. No ductal dilation. PANCREAS: Unremarkable. No ductal dilation. SPLEEN: Unremarkable. No splenomegaly. ADRENALS: Unremarkable. No mass. KIDNEYS AND URETERS: Bilateral nephrolithiasis. Nonobstructing renal calculi measuring up to 4 mm in diameter noted. There is a 6 mm calculus in the distal right ureter without associated ureteral dilatation. The left ureter is unremarkable. STOMACH AND BOWEL: 7.5 x 6.5 cm right inguinal hernia containing fat, fluid, and loops of small bowel. The small bowel loops within the hernia are compressed and dilated. This results in obstruction of the more proximal portion of the small bowel. There is no ischemia of the small bowel. No mucosal thickening. PELVIS: APPENDIX: No findings to suggest acute appendicitis. BLADDER: Unremarkable. No stones. REPRODUCTIVE: Unremarkable as visualized. ABDOMEN and PELVIS: INTRAPERITONEAL SPACE: Unremarkable. No free air. No significant fluid collection. BONES/JOINTS: No acute fracture. No dislocation. SOFT TISSUES: 10 x 19 cm left inguinal hernia, containing only fat. VASCULATURE: The abdominal aorta is atherosclerotic. No aneurysm. LYMPH NODES: Unremarkable. No enlarged lymph nodes. IMPRESSION: 1. Right inguinal hernia containing small bowel. There is a small bowel obstruction present associated with the hernia. No ischemic change of the bowel noted. 2. 10 x 19 cm left inguinal hernia, containing only fat. 3. Bilateral nephrolithiasis. No hydronephrosis. Nonobstructing 6 mm distal right ureteral calculus also noted. RPTAT: [facility] Jasmin Ling Physician Fusion Analyst Date Time Electronically viewed and signed by Jasmin Ling Physician Fusion Analyst on 05/06/2019 19:44 RmC/ CC: JERRY REYES MD [id number] PROCEDURE: Chest. CLINICAL INDICATION: Chest pain. TECHNIQUE: Single frontal view of the chest was obtained. COMPARISON: None. FINDINGS: The cardiac silhouette is within normal limits. The aortic arch is calcified. There is no focal consolidation, vascular congestion or pleural effusion. There is no pneumothorax. IMPRESSION: No evidence for active cardiopulmonary disease. Aortic atherosclerosis. .Usama Zazueta MD, MD Date Time Electronically viewed and signed by .Usama Zazueta MD, MD on 05/06/2019 18:42 .T/ CC: JERRY REYES MD [id number] OLIMPIA COE May 06, 2019 23:12
[2019-05-07] VITALS (25 sets, daily range): BP systolic 94–147; BP diastolic 59–83; PULSE 67–95; RESP 16–20
[2019-05-07] MEDS: HYDROmorphONE 0.5 MG/0.5 ML SYG IV PRN ×2 (00:58→17:26)
[2019-05-07] MEDS: PIPER-TAZO 3.375 GM IV (PMX) 100 ML IVPB SCH ×3 (06:16→17:05)
[2019-05-07] MEDS: PANTOPRAZOLE 40 MG INJ IV SCH (06:58)
--- NOTE | 2019-05-07 07:30 | CONS ---
Assessment/Plan Assessment/Plan Assessment/Plan (Daily) Incarcerated right inguinal hernia with secondary small bowel obstruction, and now with pneumoperitoneum. Patient will require urgent operative exploration. I have discussed the procedure and risks with the patient who understands his situation and agrees to the proposed plan of therapy as outlined. Consultation Date/Type/Reason Admit Date/Time May 06, 2019 at 19:50 Date of Consultation: May 07, 2019 Type of Consult General surgery Reason for Consultation Incarcerated right inguinal hernia with secondary small bowel obstruction and now with pneumoperitoneum Date/Time of Note DATE: 05/07/19 TIME: 07:25 Hx of Present Illness The patient is a 69-year-old gentleman who has atherosclerotic heart disease and gout. He has a long-standing large left scrotal hernia which is soft and reducible he came in yesterday with an incarcerated right inguinal hernia containing bowel. There was secondary small bowel obstruction noted on CT. He was scheduled for operative intervention. This morning an NG tube was placed. A KUB was done to confirm the location of the NG tube and showed right-sided pneumoperitoneum which had not been present yesterday. The patient has been hemodynamically stable Review of systems HEENT: Unremarkable Pulmonary: No known history of asthma or pneumonia Cardiac: History of stent placement Abdomen: As in the HPI Extremities: Unremarkable Past Medical History Medical History: coronary artery disease Home Meds Active Scripts Prednisone* (Prednisone*) 10 Mg Tab, 10 MG PO DAILY, #6 TAB take prednisone 2 pills on day 1 and day 2 take 1 pill on day 3 and day 4 Prov:ASIA BOSE NP 04/21/19 Hydrocodone/Acetaminophen ([place] 5-325 Tablet) 1 Each Tablet, 1 TAB PO Q6H PRN for PAIN, #7 TAB Prov:CEM GRIMES MD 04/18/19 Reported Medications Clopidogrel Bisulfate (Clopidogrel) 75 Mg Tablet, 75 MG PO DAILY, #30 TAB 04/18/19 Rivaroxaban* (Xarelto*) 15 Mg Tablet, 15 MG PO DAILY, TAB 04/18/19 Atorvastatin* (Atorvastatin*) 80 Mg Tablet, 80 MG PO QHS, #30 TAB 04/18/19 Carvedilol* (Coreg*) 12.5 Mg Tablet, 12.5 MG PO BID, #60 TAB 04/18/19 Furosemide (Lasix) 20 Mg Tab, 20 MG PO DAILY, TAB 04/18/19 Isosorbide Dinitrate* (Isordil*) 10 Mg Tablet, 10 MG PO TID, TAB 04/18/19 Pantoprazole (Protonix) 40 Mg Tabec, 40 MG PO DAILY, TAB 04/18/19 Hydralazine Hcl* (Hydralazine Hcl*) 10 Mg Tablet, 10 MG PO Q8, #90 TAB 04/18/19 Medications Current Medications Sodium Chloride 1,000 ml @ 70 mls/hr [id number] IV Last administered on 05/06/19at 22:45; Admin Dose 70 MLS/HR; Start 05/06/19 at 19:51 IV Flush (NS 3 ml) 3 ml PER PROTOCOL IV ; Start 05/06/19 at 20:00 Ondansetron HCl (Zofran Inj) 4 mg Q6H PRN IV NAUSEA/VOMITING; Start 05/06/19 at 20:00 Hydromorphone HCl (Dilaudid) 0.5 mg Q4H PRN IV .PAIN 7-10 Last administered on 05/07/19at 00:58; Admin Dose 0.5 MG; Start 05/06/19 at 20:00 Hydralazine HCl (Apresoline) 10 mg Q8 PO Last administered on 05/07/19at 06:15; Admin Dose 10 MG; Start 05/06/19 at 22:00 Carvedilol (Coreg) 12.5 mg BID PO Last administered on 05/06/19at 22:44; Admin Dose 12.5 MG; Start 05/06/19 at 22:30 Piperacillin Sod/ Tazobactam Sod 100 ml @ 200 mls/hr Q6 IVPB Last administered on 05/07/19at 06:16; Admin Dose 200 MLS/HR; Start 05/07/19 at 06:00 Pantoprazole (Protonix Iv) 40 mg DAILY@06 IV Last administered on 05/07/19at 06: 58; Admin Dose 40 MG; Start 05/07/19 at 06:30 Allergies: Coded Allergies: acetaminophen (Verified Allergy, Unknown, 04/18/19) hydrocodone (Verified Allergy, Unknown, 04/18/19) ibuprofen (Verified Allergy, Unknown, 05/06/19) lisinopril (Verified Allergy, Unknown, 04/18/19) losartan (Verified Allergy, Unknown, 04/18/19) morphine (Verified Allergy, Unknown, 04/18/19) tramadol (Verified Allergy, Unknown, 04/18/19) Past Surgical History Past Surgical Hx: no surgical history Family History Significant Family History: no pertinent family hx Social History Alcohol Use: none Smoking Status: Never smoker Drug Use: none Exam/Review of Systems Exam Vitals Vital Signs Date Temp Pulse Resp B/P (MAP) Pulse Ox O2 O2 Flow FiO2 Time Delivery Rate 05/07/19 97.8 72 19 147/83 96 04:00 (104) 05/06/19 Room Air 21:25 Intake and Output 05/06/19 05/06/19 05/07/19 1515:00 23:00 07:00 IntakeIntake Total 400 ml OutputOutput Total 101 ml BalanceBalance 299 ml Constitutional: alert, oriented Psych: no complaints Head: normocephalic Eyes: nl conjunctiva, other (There is a nasogastric tube in place) Neck: supple Respiratory: clear to auscultation Cardiovascular: regular rate and rhythm Gastrointestinal: soft Genitourinary - Male: other (There is a 5 cm incarcerated right inguinal hernia. There is a large left scrotal hernia which is soft and reducible) Musculoskeletal: nl extremities to inspection Results Result Diagram: 05/07/19 0651 05/06/19 1825 Results 24hrs Laboratory Tests Test 05/06/19 18:24 05/06/19 18:25 05/07/19 06:51 Urine Color STRAW Urine Clarity CLEAR Urine pH 8.0 Urine Specific [place] 1.011 Urine Ketones NEGATIVE Urine Nitrite NEGATIVE Urine Bilirubin NEGATIVE Urine Urobilinogen NEGATIVE Urine Leukocyte Esterase NEGATIVE Urine Microscopic RBC 92 H Urine Microscopic WBC 2 Urine Hemoglobin 2+ H Urine Glucose NEGATIVE Urine Total Protein NEGATIVE White Blood Count 9.9 9.7 Red Blood Count 4.64 L 4.49 L Hemoglobin 14.1 13.8 L Hematocrit 42.6 42.0 Mean Corpuscular Volume 91.8 93.5 Mean Corpuscular Hemoglobin 30.4 30.7 Mean Corpuscular Hemoglobin Concent 33.1 32.9 Red Cell Distribution Width 12.6 12.9 Platelet Count 179 # 160 Mean Platelet Volume 9.0 9.1 Immature Granulocytes % 1.000 H 0.700 H Neutrophils % 82.1 H 84.7 H Lymphocytes % 11.4 L 9.3 L Monocytes % 5.3 4.8 Eosinophils % 0.1 0.3 Basophils % 0.1 0.2 Nucleated Red Blood Cells % 0.0 0.0 Immature Granulocytes # 0.100 H 0.070 H Neutrophils # 8.1 H 8.2 H Lymphocytes # 1.1 0.9 Monocytes # 0.5 0.5 Eosinophils # 0.0 0.0 Basophils # 0.0 0.0 Nucleated Red Blood Cells # 0.0 0.0 Prothrombin Time 17.2 H Prothrombin Time Ratio 1.3 INR International Normalized Ratio 1.39 Activated Partial Thromboplast Time 26.1 Sodium Level 137 Potassium Level 4.2 Chloride Level 102 Carbon Dioxide Level 26 Anion Gap 9 Blood Urea Nitrogen 32 H Creatinine 1.20 Est Glomerular Filtrat Rate mL/min Glucose Level 126 Calcium Level 9.3 Total Bilirubin 0.9 Direct Bilirubin 0.00 Indirect Bilirubin 0.9 Aspartate Amino Transf (AST/SGOT) 24 Alanine Aminotransferase (ALT/SGPT) 27 Alkaline Phosphatase 66 Troponin I 0.021 Total Protein 6.5 Albumin 3.7 Globulin 2.80 Albumin/Globulin Ratio 1.32 Lipase 95 Medications Medication Current Medications Sodium Chloride 1,000 ml @ 70 mls/hr [id number] IV Last administered on 05/06/19at 22:45; Admin Dose 70 MLS/HR; Start 05/06/19 at 19:51 IV Flush (NS 3 ml) 3 ml PER PROTOCOL IV ; Start 05/06/19 at 20:00 Ondansetron HCl (Zofran Inj) 4 mg Q6H PRN IV NAUSEA/VOMITING; Start 05/06/19 at 20:00 Hydromorphone HCl (Dilaudid) 0.5 mg Q4H PRN IV .PAIN 7-10 Last administered on 05/07/19at 00:58; Admin Dose 0.5 MG; Start 05/06/19 at 20:00 Hydralazine HCl (Apresoline) 10 mg Q8 PO Last administered on 05/07/19at 06:15; Admin Dose 10 MG; Start 05/06/19 at 22:00 Carvedilol (Coreg) 12.5 mg BID PO Last administered on 05/06/19at 22:44; Admin Dose 12.5 MG; Start 05/06/19 at 22:30 Piperacillin Sod/ Tazobactam Sod 100 ml @ 200 mls/hr Q6 IVPB Last administered on 05/07/19at 06:16; Admin Dose 200 MLS/HR; Start 05/07/19 at 06:00 Pantoprazole (Protonix Iv) 40 mg DAILY@06 IV Last administered on 05/07/19at 06:58; Admin Dose 40 MG; Start 05/07/19 at 06:30 NACHO CANDELARIO MD May 07, 2019 07:30
[2019-05-07] MEDS: SOD CHLORIDE 0.9% 1,000 ML IV SCH ×2 (10:06→16:48)
--- NOTE | 2019-05-07 12:06 | PREAC ---
Date/Time of Note Date/Time of Note DATE: 05/07/19 TIME: 12:05 Anesthesia Eval and Record Evaluation Time Pre-Procedure Interview DATE: 05/07/19 TIME: 12:05 Age 69 Sex male NPO: 8 hrs Preoperative diagnosis perforated viscus, incarcerated hernia. Planned procedure incarcerated hernia repair Past Medical History Past Medical History: Includes Cardio: HTN, Dyslipidemia, SD, CAD, PTCA/Stent, Arrythmia, CHF Musculoskeletal: Osteoarthritis GI: GERD Heme: Anemia Surgery & Anesthesia Issues No known issue Meds Anticoagulation: No Beta Ej within 24 hr: No Reason Beta Ej not given: Pt. not on B-Ej Active Scripts Prednisone* (Prednisone*) 10 Mg Tab, 10 MG PO DAILY, #6 TAB take prednisone 2 pills on day 1 and day 2 take 1 pill on day 3 and day 4 Prov:ASIA BOSE NP 04/21/19 Hydrocodone/Acetaminophen ([place] 5-325 Tablet) 1 Each Tablet, 1 TAB PO Q6H PRN for PAIN, #7 TAB Prov:CEM GRIMES MD 04/18/19 Reported Medications Clopidogrel Bisulfate (Clopidogrel) 75 Mg Tablet, 75 MG PO DAILY, #30 TAB 04/18/19 Rivaroxaban* (Xarelto*) 15 Mg Tablet, 15 MG PO DAILY, TAB 04/18/19 Atorvastatin* (Atorvastatin*) 80 Mg Tablet, 80 MG PO QHS, #30 TAB 04/18/19 Carvedilol* (Coreg*) 12.5 Mg Tablet, 12.5 MG PO BID, #60 TAB 04/18/19 Furosemide (Lasix) 20 Mg Tab, 20 MG PO DAILY, TAB 04/18/19 Isosorbide Dinitrate* (Isordil*) 10 Mg Tablet, 10 MG PO TID, TAB 04/18/19 Pantoprazole (Protonix) 40 Mg Tabec, 40 MG PO DAILY, TAB 04/18/19 Hydralazine Hcl* (Hydralazine Hcl*) 10 Mg Tablet, 10 MG PO Q8, #90 TAB 04/18/19 Current Medications Sodium Chloride 1,000 ml @ 70 mls/hr [id number] IV Last administered on 05/07/19at 10:06; Admin Dose 70 MLS/HR; Start 05/06/19 at 19:51 IV Flush (NS 3 ml) 3 ml PER PROTOCOL IV ; Start 05/06/19 at 20:00 Ondansetron HCl (Zofran Inj) 4 mg Q6H PRN IV NAUSEA/VOMITING; Start 05/06/19 at 20:00 Hydromorphone HCl (Dilaudid) 0.5 mg Q4H PRN IV .PAIN 7-10 Last administered on 05/07/19at 00:58; Admin Dose 0.5 MG; Start 05/06/19 at 20:00 Hydralazine HCl (Apresoline) 10 mg Q8 PO Last administered on 05/07/19at 06:15; Admin Dose 10 MG; Start 05/06/19 at 22:00 Carvedilol (Coreg) 12.5 mg BID PO Last administered on 05/06/19at 22:44; Admin Dose 12.5 MG; Start 05/06/19 at 22:30 Piperacillin Sod/ Tazobactam Sod 100 ml @ 200 mls/hr Q6 IVPB Last administered on 05/07/19at 06:16; Admin Dose 200 MLS/HR; Start 05/07/19 at 06:00 Pantoprazole (Protonix Iv) 40 mg DAILY@06 IV Last administered on 05/07/19at 06:58; Admin Dose 40 MG; Start 05/07/19 at 06:30 Meds reviewed: Yes Allergies Coded Allergies: acetaminophen (Verified Allergy, Unknown, 04/18/19) hydrocodone (Verified Allergy, Unknown, 04/18/19) ibuprofen (Verified Allergy, Unknown, 05/06/19) lisinopril (Verified Allergy, Unknown, 04/18/19) losartan (Verified Allergy, Unknown, 04/18/19) morphine (Verified Allergy, Unknown, 04/18/19) tramadol (Verified Allergy, Unknown, 04/18/19) Allergies Reviewed: Yes Labs/Studies Labs Reviewed: Reviewed by anesthesiologist Result Diagram: 05/07/1951 05/07/19 0651 Laboratory Tests 05/07/19 06:51 Blood Bank Test 05/06/19 18:50 Antibody Screen NEGATIVE Blood Product Summary Counts Blood Type A POSITIVE Crossmatch Red Blood Cells test: N/A Studies: ECG Pre-procedure Exam Last vitals Vital Signs Date Temp Pulse Resp B/P (MAP) Pulse Ox O2 O2 Flow FiO2 Time Delivery Rate 05/07/19 97.8 67 20 137/75 98 Room Air 11:04 (95) Airway: Adequate mouth opening, Adequate thyromental dist Mallampati: Mallampati II Teeth: Normal Lung: Normal Heart: Normal ASA Physical Status ASA physical status: 4 Emergency: E Planned Anesthetic General/MAC: ETT, A Line Nerve block: TAP (bilateral) Pre-operative Attestations Prior to commencing anesthesia and surgery, the patient was re-evaluated, there was verification of: *The patient's identity *The results of appropriate recent lab work and preoperative vital signs *The above evaluation not changing prior to induction *Anesthetic plan, risk benefits, alternative and complications discussed with patient/family; questions answered; patient/family understands, accepts and wishes to proceed. CHUCKY RIVERS May 07, 2019 12:06
[2019-05-07] MEDS ORDERED: FENTAnyl 50 MCG/ML VIAL ONE ×2 (12:56→14:09)
[2019-05-07] MEDS ORDERED: ETOMIDATE 20 MG INJ ONE (12:56)
[2019-05-07] MEDS ORDERED: SUCCINYLCHOLINE CHLORIDE 100 MG/5 ML SYG IV ONE (13:30)
[2019-05-07] MEDS ORDERED: PROPOFOL 20 ML ONE (13:30)
[2019-05-07] MEDS ORDERED: LIDOCAINE 100 MG SYRINGE ONE (13:30)
[2019-05-07] MEDS ORDERED: ROCURONIUM 50 MG INJ ONE (13:30)
[2019-05-07] MEDS ORDERED: SUGAMMADEX SODIUM 200 MG/2 ML VIAL IV ONE (13:30)
[2019-05-07] MEDS ORDERED: HYDROmorphONE 1 MG/5 ML IV SYRINGE IV ONE (14:28)
[2019-05-07] MEDS ORDERED: HYDROmorphONE 1 MG/5 ML IV SYRINGE IV PRN ×3 (15:00)
[2019-05-07] MEDS ORDERED: FENTAnyl 50 MCG/ML VIAL IV PRN ×3 (15:00)
[2019-05-07] MEDS ORDERED: ONDANSETRON 4 MG INJ IV PRN (15:00)
--- NOTE | 2019-05-07 15:14 | PN ---
Date/Time of Note Date/Time of Note DATE: 05/07/19 TIME: 14:49 Assessment/Plan VTE Prophylaxis Risk score (from Ns)>0 risk: 4 SCD applied (from Ns): Yes Pharmacological prophylaxis: NA/contraindicated Pharm contraindication: surgical contra Lines/Catheters IV [facility]from [facility]): Peripheral IV Assessment/Plan Assessment/Plan 69 yo man with chronic R sided inguinal hernia presents with incarceration, s/p surgical repair. # incarcerated right-sided inguinal hernia: - Hernia nonreducible on admission. - The patient had a CXR done after the abdominal CT which was read incorrectly as "pneumoperitoneum of the right hemidiaphragm". There is a telemetry wire which traces above the R hemidiaphragm and looks a little bit like free air but on the second image the wire is clearly moved and there is no free air. - Went to surgery on 05/[address] Pride. Got hernia repair. - To telemetry. - NPO, diet advancement per surgery. # Gout - Has difficult walking due to repeated gout attacks. - Currently does report improvement in his ambulation though not completely back to normal. He was recently admitted for acute gout attack and required steroid injection. - Currently holding prednisone. Does not appear to be in flare. # History of CHF: - Continue carvedilol, hydralazine, Isordil, statin. - Will hold Lasix at the current time as this could be exacerbating his gout. He does not appear to be acutely decompensated. # Coronary artery disease: - Patient status post stent in March 2018. - Barely one year after stent placement, I believe the risk of in-stent th rombosis outweighs the risk of surgical bleeding. I will restart Plavix. # Atrial fibrillation: Continue rate controlled, continue carvedilol, will hold Xarelto until okay by surgery. # dyslipidemia: Continue statin # hypertension: Continue beta-joseph, will hold Lasix at the current time # chronic kidney disease: Monitor renal function. Avoid NSAIDs. # DVT GI prophylaxis: SCDs, Protonix Result Diagram: 05/07/1953 05/07/19650 Subjective 24 Hr Interval Summary Free Text/Dictation The patient was taken early this morning for exp lap for new free air under the diaphragm on CXR. Going back to telemetry. Patient awake and alert in PACU after surgery. Exam/Review of Systems Exam Vitals Vital Signs Date Temp Pulse Resp B/P (MAP) Pulse Ox O2 O2 Flow FiO2 Time Delivery Rate 05/07/19 98.5 14:22 05/07/19 67 20 137/75 98 Room Air 11:04 (95) Intake and Output 05/06/19 05/06/19 05/07/19 1515:00 23:00 07:00 IntakeIntake Total 400 ml OutputOutput Total 101 ml BalanceBalance 299 ml Exam General: Patient is currently lying in bed, in distress from postoperative pain, awake and alert. HEENT: Extraocular motor are intact Neck: Supple with full range of motion. No rigidity or meningismus Chest: Nontender Lungs: Clear to auscultation bilaterally no crackles rales or wheezing Heart: Normal S1-S2, Regular rhythm and rate. No murmur, S3, or S4 Abdomen: Soft , surgical dressings clean and dry, not distended. Extremities: Normal to inspection, no edema no cyanosis Genitourinary: R groin surgical dressing clean and dry. Results Results 24hrs Laboratory Tests Test 05/06/19 18:24 05/06/19 18:25 05/07/19 06:51 Urine Color STRAW Urine Clarity CLEAR Urine pH 8.0 Urine Specific [place] 1.011 Urine Ketones NEGATIVE Urine Nitrite NEGATIVE Urine Bilirubin NEGATIVE Urine Urobilinogen NEGATIVE Urine Leukocyte Esterase NEGATIVE Urine Microscopic RBC 92 H Urine Microscopic WBC 2 Urine Hemoglobin 2+ H Urine Glucose NEGATIVE Urine Total Protein NEGATIVE White Blood Count 9.9 9.7 Red Blood Count 4.64 L 4.49 L Hemoglobin 14.1 13.8 L Hematocrit 42.6 42.0 Mean Corpuscular Volume 91.8 93.5 Mean Corpuscular Hemoglobin 30.4 30.7 Mean Corpuscular Hemoglobin Concent 33.1 32.9 Red Cell Distribution Width 12.6 12.9 Platelet Count 179 # 160 Mean Platelet Volume 9.0 9.1 Immature Granulocytes % 1.000 H 0.700 H Neutrophils % 82.1 H 84.7 H Lymphocytes % 11.4 L 9.3 L Monocytes % 5.3 4.8 Eosinophils % 0.1 0.3 Basophils % 0.1 0.2 Nucleated Red Blood Cells % 0.0 0.0 Immature Granulocytes # 0.100 H 0.070 H Neutrophils # 8.1 H 8.2 H Lymphocytes # 1.1 0.9 Monocytes # 0.5 0.5 Eosinophils # 0.0 0.0 Basophils # 0.0 0.0 Nucleated Red Blood Cells # 0.0 0.0 Prothrombin Time 17.2 H Prothrombin Time Ratio 1.3 INR International Normalized Ratio 1.39 Activated Partial Thromboplast Time 26.1 Sodium Level 137 137 Potassium Level 4.2 3.9 Chloride Level 102 104 Carbon Dioxide Level 26 30 Anion Gap 9 3 L Blood Urea Nitrogen 32 H 28 H Creatinine 1.20 1.06 Est Glomerular Filtrat Rate mL/min Glucose Level 126 123 Calcium Level 9.3 8.6 Total Bilirubin 0.9 Direct Bilirubin 0.00 Indirect Bilirubin 0.9 Aspartate Amino Transf (AST/SGOT) 24 Alanine Aminotransferase (ALT/SGPT) 27 Alkaline Phosphatase 66 Troponin I 0.021 Total Protein 6.5 Albumin 3.7 Globulin 2.80 Albumin/Globulin Ratio 1.32 Lipase 95 Magnesium Level 2.1 Medications Medication Current Medications Sodium Chloride 1,000 ml @ 70 mls/hr [id number] IV Last administered on 05/07/19at 10:06; Admin Dose 70 MLS/HR; Start 05/06/19 at 19:51 IV Flush (NS 3 ml) 3 ml PER PROTOCOL IV ; Start 05/06/19 at 20:00 Ondansetron HCl (Zofran Inj) 4 mg Q6H PRN IV NAUSEA/VOMITING; Start 05/06/19 at 20:00 Hydromorphone HCl (Dilaudid) 0.5 mg Q4H PRN IV .PAIN 7-10 Last administered on 05/07/19at 00:58; Admin Dose 0.5 MG; Start 05/06/19 at 20:00 Hydralazine HCl (Apresoline) 10 mg Q8 PO Last administered on 05/07/19at 06:15; Admin Dose 10 MG; Start 05/06/19 at 22:00 Carvedilol (Coreg) 12.5 mg BID PO Last administered on 05/06/19at 22:44; Admin Dose 12.5 MG; Start 05/06/19 at 22:30 Piperacillin Sod/ Tazobactam Sod 100 ml @ 200 mls/hr Q6 IVPB Last administered on 05/07/19at 06:16; Admin Dose 200 MLS/HR; Start 05/07/19 at 06:00 Pantoprazole (Protonix Iv) 40 mg DAILY@06 IV Last administered on 05/07/19at 06:58; Admin Dose 40 MG; Start 05/07/19 at 06:30 Hydromorphone HCl (Dilaudid) 0.2 mg PACU PRN IV MILD PAIN 1-3; Start 05/07/19 at 15:00; Status UNV Hydromorphone HCl (Dilaudid) 0.4 mg PACU PRN IV MOD PAIN 4-6; Start 05/07/19 at 15:00; Status UNV Hydromorphone HCl (Dilaudid) 0.6 mg PACU PRN IV SEVERE PAIN 7-10; Start 05/07/19 at 15:00; Status UNV Fentanyl (Sublimaze) 25 mcg PACU ORDER PRN IV MILD PAIN 1-3; Start 05/07/19 at 15:00; Status UNV Fentanyl (Sublimaze) 50 mcg PACU ORDER PRN IV MOD PAIN 4-6; Start 05/07/19 at 15:00; Status UNV Fentanyl (Sublimaze) 75 mcg PACU ORDER PRN IV SEVERE PAIN 7-10; Start 05/07/19 at 15:00; Status UNV Ondansetron HCl (Zofran Inj) 4 mg PACU ORDER PRN IV NAUSEA/VOMITING; Start 05/07/19 at 15:00; Status UNV NIALL CONRAD MD May 07, 2019 14:59
[2019-05-07] MEDS: CLOPIDOGREL 75 MG TAB PO SCH (17:05)
[2019-05-08] VITALS: BP 95/60; PULSE 91; RESP 18
[2019-05-08 04:38] VITALS: BP 93/51; PULSE 98; RESP 16
[2019-05-08] MEDS: PIPER-TAZO 3.375 GM IV (PMX) 100 ML IVPB SCH ×4 (05:41→18:58)
[2019-05-08] MEDS: PANTOPRAZOLE 40 MG INJ IV SCH (05:42)
[2019-05-08 07:45] VITALS: BP 106/59; PULSE 100; RESP 20
[2019-05-08] MEDS: CLOPIDOGREL 75 MG TAB PO SCH (08:03)
[2019-05-08] MEDS: HYDROmorphONE 0.5 MG/0.5 ML SYG IV PRN (08:08)
--- NOTE | 2019-05-08 09:06 | QN ---
Documentation Comment Postoperative day #1 Markedly symptomatically improved Abdominal examination is benign Abdominal and groin dressings slight blood tinge Plan: Discontinue Carrington catheter NACHO CANDELARIO MD May 08, 2019 09:06
[2019-05-08] MEDS: SOD CHLORIDE 0.9% 1,000 ML IV SCH (10:57)
[2019-05-08 11:35] VITALS: BP 118/66; PULSE 99; RESP 18
--- NOTE | 2019-05-08 11:35 | PN ---
Date/Time of Note Date/Time of Note DATE: 05/08/19 TIME: 11:33 Assessment/Plan VTE Prophylaxis Risk score (from Ns)>0 risk: 5 SCD applied (from Ns): Yes Pharmacological prophylaxis: NA/contraindicated Pharm contraindication: surgical contra Lines/Catheters IV [facility]ter Type (from [facility]): Peripheral IV Urinary Cath still in place: Yes Reason Cath still needed: other (indicate) (immobile after surgery) Assessment/Plan Assessment/Plan 69 yo man with chronic R sided inguinal hernia presents with incarceration, s/p surgical repair. # incarcerated right-sided inguinal hernia: - Hernia nonreducible on admission. - The patient had a CXR done after the abdominal CT which was read incorrectly as "pneumoperitoneum of the right hemidiaphragm". There is a telemetry wire which traces above the R hemidiaphragm and looks a little bit like free air but on the second image the wire is clearly moved and there is no free air. - Went to surgery on 05/[address] Pride. Got hernia repair. - clear liquids, diet advancement per surgery. # Gout - Has difficult walking due to repeated gout attacks. - Currently does report improvement in his ambulation though not completely back to normal. He was recently admitted for acute gout attack and required steroid injection. - Currently holding prednisone. Does not appear to be in flare. # History of CHF: - Continue carvedilol, hydralazine, Isordil, statin. - Will hold Lasix at the current time as this could be exacerbating his gout. He does not appear to be acutely decompensated. # Coronary artery disease: - Patient status post stent in March 2018. - Barely one year after stent placement, I believe the risk of in-stent thrombosis outweighs the risk of surgical bleeding. I will restart Plavix. # Atrial fibrillation: Continue rate controlled, continue carvedilol, will hold Xarelto until okay by surgery. # dyslipidemia: Continue statin # hypertension: Continue beta-joseph, will hold Lasix at the current time # chronic kidney disease: Monitor renal function. Avoid NSAIDs. # DVT GI prophylaxis: SCDs, Protonix Result Diagram: 05/07/1953 05/07/19650 Subjective 24 Hr Interval Summary Free Text/Dictation No acute overnight events. Reports abdominal pain with movement. Tolerating clear liquids, no bowel movement yet. Exam/Review of Systems Exam Vitals Vital Signs Date Temp Pulse Resp B/P (MAP) Pulse Ox O2 O2 Flow FiO2 Time Delivery Rate 05/08/19 98.8 100 20 106/59 98 Nasal 07:45 (75) Cannula 05/07/19 2.0 15:31 Intake and Output 05/07/19 05/07/19 05/08/19 1515:00 23:00 07:00 IntakeIntake Total 1000 ml 100 ml 250 ml OutputOutput Total 500 ml 65 ml 400 ml BalanceBalance 500 ml 35 ml -150 ml Exam General: Patient is currently lying in bed, no acute distress. HEENT: Extraocular motor are intact Neck: Supple with full range of motion. No rigidity or meningismus Chest: Nontender Lungs: Clear to auscultation bilaterally no crackles rales or wheezing Heart: Normal S1-S2, Regular rhythm and rate. No murmur, S3, or S4 Abdomen: Soft , surgical dressings clean and dry, not distended. Bowel sounds present. Extremities: Normal to inspection, no edema no cyanosis Genitourinary: R groin surgical dressing clean and dry. Results Results 24hrs Laboratory Tests Test 05/07/19 19:34 Urine Color ENRRIQUE Urine Clarity CLOUDY A Urine pH 6.0 Urine Specific [place] 1.026 Urine Ketones NEGATIVE Urine Nitrite NEGATIVE Urine Bilirubin NEGATIVE Urine Urobilinogen NEGATIVE Urine Leukocyte Esterase NEGATIVE Urine Microscopic RBC > 182 H Urine Microscopic WBC > 182 H Urine Hemoglobin 3+ H Urine Glucose NEGATIVE Urine Total Protein 2+ H Medications Medication Current Medications Sodium Chloride 1,000 ml @ 70 mls/hr [id number] IV Last administered on 05/08/19at 10:57; Admin Dose 70 MLS/HR; Start 05/06/19 at 19:51 IV Flush (NS 3 ml) 3 ml PER PROTOCOL IV ; Start 05/06/19 at 20:00 Ondansetron HCl (Zofran Inj) 4 mg Q6H PRN IV NAUSEA/VOMITING; Start 05/06/19 at 20:00 Hydromorphone HCl (Dilaudid) 0.5 mg Q4H PRN IV .PAIN 7-10 Last administered on 05/08/19at 08:08; Admin Dose 0.5 MG; Start 05/06/19 at 20:00 Hydralazine HCl (Apresoline) 10 mg Q8 PO Last administered on 05/07/19 06:15; Admin Dose 10 MG; Start 05/06/19 at 22:00 Carvedilol (Coreg) 12.5 mg BID PO Last administered on 05/08/19 08:04; Admin Dose 12.5 MG; Start 05/06/19 at 22:30 Piperacillin Sod/ Tazobactam Sod 100 ml @ 200 mls/hr Q6 IVPB Last administered on 05/08/19 05:41; Admin Dose 200 MLS/HR; Start 05/07/19 at 06:00 Pantoprazole (Protonix Iv) 40 mg DAILY@06 IV Last administered on 05/08/19 05:42; Admin Dose 40 MG; Start 05/07/19 at 06:30 Clopidogrel Bisulfate (plaVIX) 75 mg DAILY PO Last administered on 05/08/19 08:03; Admin Dose 75 MG; Start 05/07/19 at 15:30 NIALL CONRAD MD May 08, 2019 11:35
--- NOTE | 2019-05-08 12:41 | OPR ---
Date/Time of Note Date/Time of Note DATE: 05/08/19 TIME: 12:33 Operative Report Procedure Date: May 07, 2019 Preoperative Diagnosis 1. Pneumoperitoneum 2. Incarcerated recurrent right inguinal hernia and secondary small bowel obstruction Postoperative Diagnosis Incarcerated recurrent right inguinal hernia. No pneumoperitoneum. Bowel obstruction resolved Operation/Procedure Performed 1. Exploratory laparotomy 2. Repair recurrent right inguinal hernia with extra large plug Surgeon Nacho Candelario MD Ui Ux Developer None Anesthesia Type: general Anesthesiologist: CHUCKY RIVERS Estimated Blood Loss: 50 - 100 ml's Transfusion none Specimen None Grafts/Implants Extra-large Bard PerFix plug and patch Tubes/Drains None Complications none Pt Condition Post Procedure: stable Disposition: PACU Indications Small bowel obstruction and pneumoperitoneum Procedure Description After satisfactory general endotracheal anesthesia was achieved, a Carrington catheter was placed in the abdomen was prepped and draped in the usual fashion. The right inguinal hernia was able to be reduced after the patient was asleep and paralyzed. The abdomen was entered through a vertical midline incision. Abdominal exploration showed no evidence of bowel perforation. The small bowel was run from the ileocecal valve retrograde to the ligament of Treitz. The segment of small bowel which was involved in the hernia was clearly viable. The entire colon was normal. The stomach and duodenum were normal. After discussion with the radiologist from the operating room it became apparent that the pneumoperitoneum reported earlier was very likely an over read. The bowel was run for a second time from the esophagus to the stomach and duodenum, the entire small bowel and colon. There was no perforation or compromised bowel. The right inguinal hernia which was recurrent was deep in the pelvis and too large for open preperitoneal repair. The viscera were then replaced into the abdomen which was then closed with 2 running sutures en swati of #2 Vicryl. Skin was closed with fuad. Next a transverse skin incision was made in the right groin through the previous scar down to the level of the external oblique which was opened. The cord was encircled and preserved throughout the procedure. There was a large direct sac which was dissected circumferentially and reduced. The reduction was maintained by placement of an extra-large plug secured circumferentially to healthy fascia with interrupted 2-0 Vicryl suture. Next the flat portion of the mesh was cut and fashioned to fit in the floor the canal as an overlay. It was anchored at the pubic tubercle with 2-0 Novafil. It was anchored laterally to inguinal ligament with interrupted 2-0 Novafil, and medially to conjoined tendon with interrupted 2-0 Novafil. The mesh distal to the cord was reconstituted with a single suture of 2-0 Novafil creating a new internal ring of appropriate size. The cord was then replaced below Nando's fascia which was then closed with interrupted 3-0 Vicryl suture. Skin was closed with fuad. Sponge, needle, and instrument counts were reported as correct x2. NACHO CANDELARIO MD May 08, 2019 12:41
--- NOTE | 2019-05-08 13:13 | RADRPT ---
Echocardiogram Report Patient Name: HARLEY RALPHPatient ID: [id number] : 1950 (69y 1m)Study Date: 05/07/2019 10:17:45 AM Gender: Neelcession #: [id number] Tech: LE Location[place] [facility] Ref.Physician: OLIMPIA COE Height(Cm): BSA: Weight(Kg): Quality: GoodOrder Physician: OLIMPIA COE Account #: Procedures: Echocardiographic Report: Transthoracic echocardiogram with complete 2D, M-Mode, and doppler examination. Indications: Pre-op. Measurements: 2D/M Mode Doppler Measurement Value Normal Range Measurement Value Normal Range LVIDd 2D 5.0 [ 4.2 - 5.8 ] cm AV Mean Jossue 1.1 [ 70.0 - 90.0 ] cm/sec LVIDs 2D 3.5 [ 2.5 - 4.0 ] cm AV Mean PG 6.0 [ 2.0 - 4.0 ] mmHg LVPWd 2D 1.2 [ 0.6 - 1.0 ] cm AV Peak Jossue 1.7 [ 100.0 - 170.0 ] cm/sec IVSd 2D 1.4 [ 0.6 - 1.0 ] cm AV Peak PG 11.0 [ 2.0 - 9.0 ] mmHg EDV 2D 116.0 [ 62.0 - 150.0 ] ml AV VTI 31.2 cm ESV 2D 51.9 [ 21.0 - 61.0 ] ml LVOT Peak Jossue 1.1 [ 70.0 - 110.0 ] cm/sec EF 2D 55.3 [ 52.0 - 72.0 ] percent LVOT Peak PG 5.0 [ 2.0 - 6.0 ] mmHg LVOT Diam 2.0 [ 2.3 - 2.9 ] cm MV E Peak Jossue 1.5 [ 60.0 - 130.0 ] cm/sec MV A Peak Jossue 0.5 [ 100.0 - 120.0 ] cm/sec MV E/A 2.9 [ 0.8 - 1.5 ] ratio MV Decel Time 190 [ 104 - 258 ] msec Lat E` Jossue 0.1 [ 10.0 - 15.0 ] cm/sec Lateral E/E` 17.3 [ 1.0 - 2.0 ] ratio Med E` Jossue 0.1 cm/sec MV E/A 2.9 [ 0.8 - 1.5 ] ratio TR Peak Jossue 2.6 [ 100.0 - 280.0 ] cm/sec TR Peak PG 27.0 mmHg PV Peak Jossue 0.9 [ 40.0 - 80.0 ] cm/sec PV Peak PG 3.0 mmHg Findings: Left Ventricle: Normal left ventricular systolic function. Normal left ventricular cavity size. Mild concentric left ventricular hypertrophy. Ejection fraction is visually estimated at 60 %. Tissue Doppler/Mitral Doppler indices are indeterminate in this study due to the presence of atrial fibrillation. Possible inferolateral wall hypokinesis, not well seen. Right Ventricle: Normal right ventricular size. Normal right ventricular systolic function. Left Atrium: There is moderate enlargement of left atrium. Right Atrium: There is mild enlargement of right atrium. Mitral Valve: Normal appearance of the mitral valve. Mild to moderate mitral valve regurgitation. The regurgitation jet is eccentrically directed which may underestimate the severity of mitral regurgitation. Aortic Valve: Normal appearance of the aortic valve. No significant aortic stenosis or insufficiency. Tricuspid Valve: Normal appearance of the tricuspid valve. The estimated Peak RVSP is 22 mmHg. There is mild tricuspid regurgitation. Pulmonic Valve: Normal pulmonic valve appearance. There is trace pulmonic regurgitation. Pericardium: Normal pericardium with no significant pericardial effusion. Aorta: Normal aortic root. IVC: The IVC is not well visualized. Conclusions: Normal left ventricular systolic function. Normal left ventricular cavity size. Mild concentric left ventricular hypertrophy. Ejection fraction is visually estimated at 60 %. Tissue Doppler/Mitral Doppler indices are indeterminate in this study due to the presence of atrial fibrillation. Possible inferolateral wall hypokinesis, not well seen. Mild to moderate mitral valve regurgitation. The regurgitation jet is eccentrically directed which may underestimate the severity of mitral regurgitation. The estimated Peak RVSP is 22 mmHg plus RA pressure. The IVC is not well visualized. Electronically Signed By: Alvaro Valderrama 2019-05-08 13:13:07 PDT
[2019-05-08 15:40] VITALS: BP 123/61; PULSE 91; RESP 19
[2019-05-08 19:40] VITALS: BP 123/62; PULSE 105; RESP 20
[2019-05-09] VITALS: BP 109/64; PULSE 89; RESP 17
[2019-05-09] MEDS: PIPER-TAZO 3.375 GM IV (PMX) 100 ML IVPB SCH ×5 (00:11→23:50)
[2019-05-09] MEDS: HYDROmorphONE 0.5 MG/0.5 ML SYG IV PRN ×3 (00:13→23:50)
[2019-05-09 04:00] VITALS: BP 107/69; PULSE 73; RESP 18
[2019-05-09] MEDS: SOD CHLORIDE 0.9% 1,000 ML IV SCH ×2 (05:15→17:47)
[2019-05-09] MEDS: PANTOPRAZOLE 40 MG INJ IV SCH (05:15)
--- NOTE | 2019-05-09 07:27 | PAC ---
Date/Time of Note Date/Time of Note DATE: 05/09/19 TIME: 07:27 Post-Anesthesia Notes Post-Anesthesia Note Last documented vital signs Vital Signs Date Temp Pulse Resp B/P (MAP) Pulse Ox O2 O2 Flow FiO2 Time Delivery Rate 05/09/19 98.7 73 18 107/69 99 04:00 (82) 05/08/19 Room Air 19:40 05/07/19 2.0 15:31 Activity: WNL Respiratory function: WNL Cardiovascular function: WNL Mental status: Baseline Pain reasonably controlled: Yes Hydration appropriate: Yes Nausea/Vomiting absent: Yes CHUCKY RIVERS May 09, 2019 07:27
[2019-05-09 07:38] VITALS: BP 106/57; PULSE 70; RESP 18
[2019-05-09] MEDS: CLOPIDOGREL 75 MG TAB PO SCH (08:47)
--- NOTE | 2019-05-09 10:52 | PN ---
Date/Time of Note Date/Time of Note DATE: 05/09/19 TIME: 10:44 Assessment/Plan VTE Prophylaxis Risk score (from Nsg)>0 risk: 12 SCD applied (from Nsg): Yes Pharmacological prophylaxis: other Lines/Catheters IV Catheter Type (from Nrsg): Peripheral IV Urinary Cath still in place: Yes Reason Cath still needed: urinary retention Assessment/Plan Hospital Course S: Patient went to the OR yesterday for hernia repair. Now on liquid diet per surgery recommendations, no apparent events overnight. O: VS- see below PE: General: Patient is currently lying in bed, no acute distress. HEENT: Extraocular motor are intact Neck: Supple with full range of motion. No rigidity or meningismus Chest: Nontender Lungs: Clear to auscultation bilaterally no crackles rales or wheezing Heart: Normal S1-S2, Regular rhythm and rate. No murmur, S3, or S4 Abdomen: Soft , surgical dressings clean and dry, not distended. Bowel sounds present. Extremities: Normal to inspection, no edema no cyanosis Genitourinary: R groin surgical dressing clean and dry. Assessment/Plan: 69 yo man with chronic R sided inguinal hernia presents with incarceration, s/p surgical repair. # incarcerated right-sided inguinal hernia- Hernia nonreducible on admission- The patient had a CXR done after the abdominal CT which was read incorrectly as "pneumoperitoneum of the right hemidiaphragm". Apparently there was a telemetry wire which traces above the R hemidiaphragm and looks a little bit like free air but on the second image the wire is clearly moved and there is no free air-in any event, patient went to surgery on 05/[address] Pride. Got hernia repair. - For now per surgery recommendations continue clear liquids, diet advanceme nt per surgery. # Gout- Has difficult walking due to repeated gout attacks- Currently does report improvement in his ambulation though not completely back to normal. He was recently admitted for acute gout attack and required steroid injection. - Currently holding prednisone. Does not appear to be in flare, monitor for now # History of CHF-no present issues - continue carvedilol, hydralazine, Isordil, statin. - For now continue to hold Lasix at the current time as this could be exacerbating his gout. He does not appear to be acutely decompensated. # Coronary artery disease- Patient status post stent in March 2018 -For now continue Plavix cautiously and monitor for any signs of bleeding # Atrial fibrillation: Appears rate controlled -For now continue rate controlled, continue carvedilol, -Holding Xarelto until okay by surgery. # dyslipidemia: Continue statin # hypertension: Continue beta-joseph, again holding Lasix at the current time # chronic kidney disease- Monitor renal function. Avoid NSAIDs. # DVT GI prophylaxis: SCDs, Protonix Result Diagram: 05/09/1962605/09/19626 Results 24hrs Laboratory Tests Test 05/08/19 11:37 05/09/19 06:27 White Blood Count 8.0 5.9 # Red Blood Count 3.27 #L 2.90 L Hemoglobin 10.2 #L 9.0 L Hematocrit 31.5 #L 27.5 L Mean Corpuscular Volume 96.3 94.8 Mean Corpuscular Hemoglobin 31.2 31.0 Mean Corpuscular Hemoglobin Concent 32.4 32.7 Red Cell Distribution Width 12.9 13.0 Platelet Count 144 113 #L Mean Platelet Volume 9.3 9.2 Immature Granulocytes % 0.500 H 0.800 H Neutrophils % 84.9 H 87.0 H Lymphocytes % 8.7 L 7.1 L Monocytes % 4.5 4.4 Eosinophils % 1.0 0.7 Basophils % 0.4 0.0 Nucleated Red Blood Cells % 0.0 0.0 Immature Granulocytes # 0.040 H 0.050 H Neutrophils # 6.8 5.1 Lymphocytes # 0.7 L 0.4 L Monocytes # 0.4 0.3 Eosinophils # 0.1 0.0 Basophils # 0.0 0.0 Nucleated Red Blood Cells # 0.0 0.0 Sodium Level 136 135 Potassium Level 3.9 3.7 Chloride Level 106 106 Carbon Dioxide Level 28 29 Anion Gap 2 L 0 L Blood Urea Nitrogen 32 H 27 H Creatinine 1.57 H 1.41 H Est Glomerular Filtrat Rate mL/min Glucose Level 139 135 Calcium Level 7.9 L 8.2 L Phosphorus Level 5.2 H 3.2 # Magnesium Level 1.8 2.0 Exam/Review of Systems Exam Vitals Vital Signs Date Temp Pulse Resp B/P (MAP) Pulse Ox O2 O2 Flow FiO2 Time Delivery Rate 05/09/19 98.2 70 18 106/57 98 07:38 (73) 05/08/19 Room Air 19:40 05/07/19 2.0 15:31 Intake and Output 05/08/19 05/08/19 05/09/19 1515:00 23:00 07:00 IntakeIntake Total 100 ml 1360 ml OutputOutput Total 500 ml 700 ml BalanceBalance 100 ml 860 ml -700 ml Results Results 24hrs Laboratory Tests Test 05/08/19 11:37 05/09/19 06:27 White Blood Count 8.0 5.9 # Red Blood Count 3.27 #L 2.90 L Hemoglobin 10.2 #L 9.0 L Hematocrit 31.5 #L 27.5 L Mean Corpuscular Volume 96.3 94.8 Mean Corpuscular Hemoglobin 31.2 31.0 Mean Corpuscular Hemoglobin Concent 32.4 32.7 Red Cell Distribution Width 12.9 13.0 Platelet Count 144 113 #L Mean Platelet Volume 9.3 9.2 Immature Granulocytes % 0.500 H 0.800 H Neutrophils % 84.9 H 87.0 H Lymphocytes % 8.7 L 7.1 L Monocytes % 4.5 4.4 Eosinophils % 1.0 0.7 Basophils % 0.4 0.0 Nucleated Red Blood Cells % 0.0 0.0 Immature Granulocytes # 0.040 H 0.050 H Neutrophils # 6.8 5.1 Lymphocytes # 0.7 L 0.4 L Monocytes # 0.4 0.3 Eosinophils # 0.1 0.0 Basophils # 0.0 0.0 Nucleated Red Blood Cells # 0.0 0.0 Sodium Level 136 135 Potassium Level 3.9 3.7 Chloride Level 106 106 Carbon Dioxide Level 28 29 Anion Gap 2 L 0 L Blood Urea Nitrogen 32 H 27 H Creatinine 1.57 H 1.41 H Est Glomerular Filtrat Rate mL/min Glucose Level 139 135 Calcium Level 7.9 L 8.2 L Phosphorus Level 5.2 H 3.2 # Magnesium Level 1.8 2.0 Medications Medication Current Medications Sodium Chloride 1,000 ml @ 70 mls/hr [id number] IV Last administered on 05/09/19at 05:15; Admin Dose 70 MLS/HR; Start 05/06/19 at 19:51 IV Flush (NS 3 ml) 3 ml PER PROTOCOL IV ; Start 05/06/19 at 20:00 Ondansetron HCl (Zofran Inj) 4 mg Q6H PRN IV NAUSEA/VOMITING; Start 05/06/19 at 20:00 Hydromorphone HCl (Dilaudid) 0.5 mg Q4H PRN IV .PAIN 7-10 Last administered on 05/09/19 00:13; Admin Dose 0.5 MG; Start 05/06/19 at 20:00 Hydralazine HCl (Apresoline) 10 mg Q8 PO Last administered on 05/07/19 06:15; Admin Dose 10 MG; Start 05/06/19 at 22:00 Carvedilol (Coreg) 12.5 mg BID PO Last administered on 05/09/19 08:47; Admin Dose 12.5 MG; Start 05/06/19 at 22:30 Piperacillin Sod/ Tazobactam Sod 100 ml @ 200 mls/hr Q6 IVPB Last administered on 05/09/19 05:15; Admin Dose 200 MLS/HR; Start 05/07/19 at 06:00 Pantoprazole (Protonix Iv) 40 mg DAILY@06 IV Last administered on 05/09/19 05:15; Admin Dose 40 MG; Start 05/07/19 at 06:30 Clopidogrel Bisulfate (plaVIX) 75 mg DAILY PO Last administered on 05/09/19 08:47; Admin Dose 75 MG; Start 05/07/19 at 15:30 DANNI HINSON May 09, 2019 10:52
[2019-05-09 11:19] VITALS: BP 117/62; PULSE 82; RESP 19
[2019-05-09 15:03] VITALS: BP 127/82; PULSE 82; RESP 18
--- NOTE | 2019-05-09 16:35 | QN ---
Documentation Comment Postoperative day #2 Afebrile throughout Tolerating clear liquids No flatus or BM Incisions are clean Plan: Continue medical management NACHO CANDELARIO MD May 09, 2019 16:35
[2019-05-09 20:00] VITALS: BP 119/66; PULSE 60; RESP 17
[2019-05-09] MEDS: ONDANSETRON 4 MG INJ IV PRN (21:04)
[2019-05-10] VITALS: BP 135/87; PULSE 72; RESP 18
[2019-05-10] MEDS: ONDANSETRON 4 MG INJ IV PRN (03:16)
[2019-05-10 04:00] VITALS: BP 130/58; PULSE 60; RESP 19
[2019-05-10] MEDS: PANTOPRAZOLE (EC) 40 MG TAB PO SCH (06:36)
[2019-05-10] MEDS: PIPER-TAZO 3.375 GM IV (PMX) 100 ML IVPB SCH ×3 (06:36→17:57)
[2019-05-10 07:28] VITALS: BP 134/79; PULSE 66; RESP 19
[2019-05-10] MEDS: CLOPIDOGREL 75 MG TAB PO SCH (08:55)
--- NOTE | 2019-05-10 09:41 | QN ---
Documentation Comment Postoperative day #3 No further belching or nausea Passed flatus earlier this morning Abdomen is soft and slightly distended There is ecchymosis of the right groin and pubis Plan: Full liquids. Repeat CBC is pending. KUB ordered NACHO CANDELARIO MD May 10, 2019 09:41
[2019-05-10] MEDS ORDERED: BISACODYL (EC) 5 MG TAB PO PRN (10:00)
[2019-05-10 11:24] VITALS: BP 140/78; PULSE 84; RESP 18
--- NOTE | 2019-05-10 12:50 | PN ---
Date/Time of Note Date/Time of Note DATE: 05/10/19 TIME: 12:45 Assessment/Plan VTE Prophylaxis Risk score (from Ns)>0 risk: 9 SCD applied (from Ns): Yes Pharmacological prophylaxis: other Lines/Catheters IV Catheter Type (from [facility]): Peripheral IV Urinary Cath still in place: No Assessment/Plan Hospital Course S: Patient had no acute events overnight, seen by PT team earlier today. O: VS- see below PE: General: Patient is currently lying in bed, no acute distress. HEENT: Extraocular motor are intact Neck: Supple with full range of motion. No rigidity or meningismus Chest: Nontender Lungs: Clear to auscultation bilaterally no crackles rales or wheezing Heart: Normal S1-S2, Regular rhythm and rate. No murmur, S3, or S4 Abdomen: Soft , surgical dressings clean and dry, not distended. Bowel sounds present. Extremities: Normal to inspection, no edema no cyanosis Genitourinary: R groin surgical dressing clean and dry. A. Operative Report Procedure Date: May 07, 2019 Preoperative Diagnosis 1. Pneumoperitoneum 2. Incarcerated recurrent right inguinal hernia and secondary small bowel obstruction Postoperative Diagnosis Incarcerated recurrent right inguinal hernia. No pneumoperitoneum. Bowel obstruction resolved Operation/Procedure Performed 1. Exploratory laparotomy 2. Repair recurrent right inguinal hernia with extra large plug B. 2D echo: Conclusions: Normal left ventricular systolic function. Normal left ventricular cavity size. Mild concentric left ventricular hypertrophy. Ejection fraction is visually estimated at 60 %. Tissue Doppler/Mitral Doppler indices are indeterminate in this study due to the presence of atrial fibrillation. Possible inferolateral wall hypokinesis, not well seen. Mild to moderate mitral valve regurgitation. The regurgitation jet is eccentrically directed which may underestimate the severity of mitral regurgitation. The estimated Peak RVSP is 22 mmHg plus RA pressure. The IVC is not well visualized. Assessment/Plan: 69 yo man with chronic R sided inguinal hernia presents with incarceration, s/p surgical repair. # incarcerated right-sided inguinal hernia- Hernia nonreducible on admission- The patient had a CXR done after the abdominal CT which was read incorrectly as "pneumoperitoneum of the right hemidiaphragm". Apparently there was a telemetry wire which traces above the R hemidiaphragm and looks a little bit like free air but on the second image the wire is clearly moved and there is no free air-in any event, patient went to surgery on 05/[address] Pride. Got hernia repair. - For now continue diet per surgery recommendations, full liquid diet today, follow-up further postop recommendations from them -Continue PT and also will order OT today # Gout- Has difficult walking due to repeated gout attacks- Currently does report improvement in his ambulation though not completely back to normal. He was recently admitted for acute gout attack and required steroid injection. - Currently holding prednisone. Does not appear to be in flare, monitor for now -Again PT, OT # History of CHF-no present issues - continue carvedilol, hydralazine, Isordil, statin. - For now continue to hold Lasix at the current time as this could be exacerbating his gout. He does not appear to be acutely decompensated. # Coronary artery disease- Patient status post stent in March 2018 -For now continue Plavix cautiously and monitor for any signs of bleeding # Atrial fibrillation: Appears rate controlled -For now continue rate controlled, continue carvedilol, -Holding Xarelto until okay by surgery. # dyslipidemia: Continue statin # hypertension: Continue beta-joseph, again holding Lasix at the current time # chronic kidney disease- Monitor renal function. Avoid NSAIDs. # DVT GI prophylaxis: SCDs, Protonix Result Diagram: 05/10/19 1010 05/09/19 0627 Results 24hrs Laboratory Tests Test 05/10/19 10:10 White Blood Count 7.0 Red Blood Count 2.95 L Hemoglobin 9.1 L Hematocrit 28.3 L Mean Corpuscular Volume 95.9 Mean Corpuscular Hemoglobin 30.8 Mean Corpuscular Hemoglobin Concent 32.2 Red Cell Distribution Width 13.0 Platelet Count 127 L Mean Platelet Volume 9.2 Immature Granulocytes % 0.900 H Neutrophils % 88.4 H Lymphocytes % 5.8 L Monocytes % 4.4 Eosinophils % 0.4 Basophils % 0.1 Nucleated Red Blood Cells % 0.0 Immature Granulocytes # 0.060 H Neutrophils # 6.2 Lymphocytes # 0.4 L Monocytes # 0.3 Eosinophils # 0.0 Basophils # 0.0 Nucleated Red Blood Cells # 0.0 Exam/Review of Systems Exam Vitals Vital Signs Date Temp Pulse Resp B/P (MAP) Pulse Ox O2 O2 Flow FiO2 Time Delivery Rate 05/10/19 98.6 84 18 140/78 97 11:24 (98) 05/10/19 Nasal 2.0 07:39 Cannula Intake and Output 05/09/19 05/09/19 05/10/19 1515:00 23:00 07:00 IntakeIntake Total 1680 ml 130 ml OutputOutput Total 300 ml 200 ml 400 ml BalanceBalance 1380 ml -70 ml -400 ml Results Results 24hrs Laboratory Tests Test 05/10/19 10:10 White Blood Count 7.0 Red Blood Count 2.95 L Hemoglobin 9.1 L Hematocrit 28.3 L Mean Corpuscular Volume 95.9 Mean Corpuscular Hemoglobin 30.8 Mean Corpuscular Hemoglobin Concent 32.2 Red Cell Distribution Width 13.0 Platelet Count 127 L Mean Platelet Volume 9.2 Immature Granulocytes % 0.900 H Neutrophils % 88.4 H Lymphocytes % 5.8 L Monocytes % 4.4 Eosinophils % 0.4 Basophils % 0.1 Nucleated Red Blood Cells % 0.0 Immature Granulocytes # 0.060 H Neutrophils # 6.2 Lymphocytes # 0.4 L Monocytes # 0.3 Eosinophils # 0.0 Basophils # 0.0 Nucleated Red Blood Cells # 0.0 Medications Medication Current Medications IV Flush (NS 3 ml) 3 ml PER PROTOCOL IV ; Start 05/06/19 at 20:00 Ondansetron HCl (Zofran Inj) 4 mg Q6H PRN IV NAUSEA/VOMITING Last administered on 05/10/19at 03:16; Admin Dose 4 MG; Start 05/06/19 at 20:00 Hydromorphone HCl (Dilaudid) 0.5 mg Q4H PRN IV .PAIN 7-10 Last administered on 05/09/19at 23:50; Admin Dose 0.5 MG; Start 05/06/19 at 20:00 Hydralazine HCl (Apresoline) 10 mg Q8 PO Last administered on 05/10/19 06:36; Admin Dose 10 MG; Start 05/06/19 at 22:00 Carvedilol (Coreg) 12.5 mg BID PO Last administered on 05/10/19 08:55; Admin Dose 12.5 MG; Start 05/06/19 at 22:30 Piperacillin Sod/ Tazobactam Sod 100 ml @ 200 mls/hr Q6 IVPB Last administered on 05/10/19 12:22; Admin Dose 200 MLS/HR; Start 05/07/19 at 06:00 Clopidogrel Bisulfate (plaVIX) 75 mg DAILY PO Last administered on 05/10/19at 08:55; Admin Dose 75 MG; Start 05/07/19 at 15:30 Pantoprazole (Protonix Tab) 40 mg DAILY@06 PO Last administered on 05/10/19at 06:36; Admin Dose 40 MG; Start 05/10/19 at 06:00 Bisacodyl (Dulcolax) 5 mg DAILY PRN PO CONSTIPATION; Start 05/10/19 at 10:00 Metoclopramide HCl (Reglan) 10 mg Q6 IV ; Start 05/10/19 at 13:00 DANNI HINSON May 10, 2019 12:50
[2019-05-10] MEDS: METOCLOPRAMIDE 10 MG INJ IV SCH ×2 (13:19→17:57)
[2019-05-10] MEDS: HYDROmorphONE 0.5 MG/0.5 ML SYG IV PRN ×2 (13:50→21:19)
[2019-05-10] MEDS: POLYETHYLENE GLYCOL 17 GM PACKET PO SCH (14:36)
[2019-05-10 15:20] VITALS: BP 136/89; PULSE 94; RESP 18
[2019-05-10 19:58] VITALS: BP 136/79; PULSE 80; RESP 19
[2019-05-11] VITALS (8 sets, daily range): BP systolic 113–132; BP diastolic 59–74; PULSE 66–91; RESP 18–20
[2019-05-11] MEDS: METOCLOPRAMIDE 10 MG INJ IV SCH ×5 (00:32→23:30)
[2019-05-11] MEDS: PIPER-TAZO 3.375 GM IV (PMX) 100 ML IVPB SCH ×4 (00:32→17:45)
[2019-05-11] MEDS: PANTOPRAZOLE (EC) 40 MG TAB PO SCH (05:54)
[2019-05-11] MEDS: HYDROmorphONE 0.5 MG/0.5 ML SYG IV PRN ×2 (05:56→10:16)
[2019-05-11] MEDS: CLOPIDOGREL 75 MG TAB PO SCH (10:11)
[2019-05-11] MEDS: POLYETHYLENE GLYCOL 17 GM PACKET PO SCH (10:11)
[2019-05-11] MEDS ORDERED: NA PHOSPHATE/BIPHOS 133 ML ENEMA PR ONE ×2 (14:30→20:30)
--- NOTE | 2019-05-11 14:32 | PN ---
Date/Time of Note Date/Time of Note DATE: 05/11/19 TIME: 14:30 Assessment/Plan VTE Prophylaxis Risk score (from Ns)>0 risk: 9 SCD applied (from [facility] [place]): No SCD contraindicated: other Pharmacological prophylaxis: rivaroxaban Lines/Catheters IV Catheter Type (from [facility]): [place] Urinary Cath still in place: No Assessment/Plan Hospital Course S: Patient passing gas but still thinks he is impacted, having minimal appetite but tolerating when he does eat. O: VS- see below PE: General: Patient is currently lying in bed, no acute distress. HEENT: Extraocular motor are intact Neck: Supple with full range of motion. No rigidity or meningismus Chest: Nontender Lungs: Clear to auscultation bilaterally no crackles rales or wheezing Heart: Normal S1-S2, Regular rhythm and rate. No murmur, S3, or S4 Abdomen: Soft , surgical dressings clean and dry, not distended. Bowel sounds present. Extremities: Normal to inspection, no edema no cyanosis Genitourinary: R groin surgical dressing clean and dry. A. Operative Report Procedure Date: May 07, 2019 Preoperative Diagnosis 1. Pneumoperitoneum 2. Incarcerated recurrent right inguinal hernia and secondary small bowel obstruction Postoperative Diagnosis Incarcerated recurrent right inguinal hernia. No pneumoperitoneum. Bowel obstr uction resolved Operation/Procedure Performed 1. Exploratory laparotomy 2. Repair recurrent right inguinal hernia with extra large plug B. 2D echo: Conclusions: Normal left ventricular systolic function. Normal left ventricular cavity size. Mild concentric left ventricular hypertrophy. Ejection fraction is visually estimated at 60 %. Tissue Doppler/Mitral Doppler indices are indeterminate in this study due to the presence of atrial fibrillation. Possible inferolateral wall hypokinesis, not well seen. Mild to moderate mitral valve regurgitation. The regurgitation jet is eccentrically directed which may underestimate the severity of mitral regurgitation. The estimated Peak RVSP is 22 mmHg plus RA pressure. The IVC is not well visualized. Assessment/Plan: 69 yo man with chronic R sided inguinal hernia presents with incarceration, s/p surgical repair. # incarcerated right-sided inguinal hernia- Hernia nonreducible on admission- T he patient had a CXR done after the abdominal CT which was read incorrectly as "pneumoperitoneum of the right hemidiaphragm". Apparently there was a telemetry wire which traces above the R hemidiaphragm and looks a little bit like free air but on the second image the wire is clearly moved and there is no free air-in any event, patient went to surgery on 05/[address] Pride. Got hernia repair. - For now continue diet per surgery recommendations, follow-up further postop recommendations from them -Continue PT and OT -For constipation and possible impaction, continue MiraLAX and will order for Fleet enema today x1 # Gout- Has difficult walking due to repeated gout attacks- Currently does r eport improvement in his ambulation though not completely back to normal. He was recently admitted for acute gout attack and required steroid injection. - Currently holding prednisone. Does not appear to be in flare, monitor for now -Again PT, OT # History of CHF-no present issues - continue carvedilol, hydralazine, Isordil, statin. - For now continue to hold Lasix at the current time as this could be exacerbating his gout. He does not appear to be acutely decompensated. # Coronary artery disease- Patient status post stent in March 2018 -For now continue Plavix cautiously and monitor for any signs of bleeding # Atrial fibrillation: Appears rate controlled -For now continue rate controlled, continue carvedilol, and will resume Xarelto today # dyslipidemia: Continue statin # hypertension: Continue beta-joseph, again holding Lasix at the current time # chronic kidney disease- Monitor renal function. Avoid NSAIDs. # DVT GI prophylaxis: SCDs, Protonix Result Diagram: 05/11/19 0723 05/11/19 0723 Results 24hrs Laboratory Tests Test 05/10/19 16:16 05/11/19 07:23 Hemoglobin 9.3 L 8.9 L Hematocrit 28.7 L 26.8 L White Blood Count 4.5 #L Red Blood Count 2.83 L Mean Corpuscular Volume 94.7 Mean Corpuscular Hemoglobin 31.4 Mean Corpuscular Hemoglobin Concent 33.2 Red Cell Distribution Width 13.3 Platelet Count 134 L Mean Platelet Volume 9.4 Immature Granulocytes % 0.200 Neutrophils % 82.7 H Lymphocytes % 9.7 L Monocytes % 5.5 Eosinophils % 1.5 Basophils % 0.4 Nucleated Red Blood Cells % 0.0 Immature Granulocytes # 0.010 Neutrophils # 3.8 Lymphocytes # 0.4 L Monocytes # 0.3 Eosinophils # 0.1 Basophils # 0.0 Nucleated Red Blood Cells # 0.0 Sodium Level 136 Potassium Level 3.4 L Chloride Level 105 Carbon Dioxide Level 27 Anion Gap 4 L Blood Urea Nitrogen 32 H Creatinine 1.90 H Est Glomerular Filtrat Rate mL/min Glucose Level 125 Calcium Level 8.4 Phosphorus Level 2.9 Magnesium Level 2.1 Exam/Review of Systems Exam Vitals Vital Signs Date Temp Pulse Resp B/P (MAP) Pulse Ox O2 O2 Flow FiO2 Time Delivery Rate 05/11/19 18 119/60 13:19 (79) 05/11/19 97.9 71 95 Room Air 11:42 05/10/19 2.0 07:39 Intake and Output 05/10/19 05/10/19 05/11/19 1515:00 23:00 07:00 IntakeIntake Total 300 ml 200 ml OutputOutput Total 300 ml 100 ml 100 ml BalanceBalance 0 ml 100 ml -100 ml Results Results 24hrs Laboratory Tests Test 05/10/19 16:16 05/11/19 07:23 Hemoglobin 9.3 L 8.9 L Hematocrit 28.7 L 26.8 L White Blood Count 4.5 #L Red Blood Count 2.83 L Mean Corpuscular Volume 94.7 Mean Corpuscular Hemoglobin 31.4 Mean Corpuscular Hemoglobin Concent 33.2 Red Cell Distribution Width 13.3 Platelet Count 134 L Mean Platelet Volume 9.4 Immature Granulocytes % 0.200 Neutrophils % 82.7 H Lymphocytes % 9.7 L Monocytes % 5.5 Eosinophils % 1.5 Basophils % 0.4 Nucleated Red Blood Cells % 0.0 Immature Granulocytes # 0.010 Neutrophils # 3.8 Lymphocytes # 0.4 L Monocytes # 0.3 Eosinophils # 0.1 Basophils # 0.0 Nucleated Red Blood Cells # 0.0 Sodium Level 136 Potassium Level 3.4 L Chloride Level 105 Carbon Dioxide Level 27 Anion Gap 4 L Blood Urea Nitrogen 32 H Creatinine 1.90 H Est Glomerular Filtrat Rate mL/min Glucose Level 125 Calcium Level 8.4 Phosphorus Level 2.9 Magnesium Level 2.1 Medications Medication Current Medications IV Flush (NS 3 ml) 3 ml PER PROTOCOL IV ; Start 05/06/19 at 20:00 Ondansetron HCl (Zofran Inj) 4 mg Q6H PRN IV NAUSEA/VOMITING Last administered on 05/10/19at 03:16; Admin Dose 4 MG; Start 05/06/19 at 20:00 Hydromorphone HCl (Dilaudid) 0.5 mg Q4H PRN IV .PAIN 7-10 Last administered on 05/11/19 10:16; Admin Dose 0.5 MG; Start 05/06/19 at 20:00 Hydralazine HCl (Apresoline) 10 mg Q8 PO Last administered on 05/11/19 13:19; Admin Dose 10 MG; Start 05/06/19 at 22:00 Carvedilol (Coreg) 12.5 mg BID PO Last administered on 05/11/19 10:15; Admin Dose 12.5 MG; Start 05/06/19 at 22:30 Piperacillin Sod/ Tazobactam Sod 100 ml @ 200 mls/hr Q6 IVPB Last administered on 05/11/19 13:16; Admin Dose 200 MLS/HR; Start 05/07/19 at 06:00 Clopidogrel Bisulfate (plaVIX) 75 mg DAILY PO Last administered on 05/11/19 10:11; Admin Dose 75 MG; Start 05/07/19 at 15:30 Pantoprazole (Protonix Tab) 40 mg DAILY@06 PO Last administered on 05/11/19at 05:54; Admin Dose 40 MG; Start 05/10/19 at 06:00 Bisacodyl (Dulcolax) 5 mg DAILY PRN PO CONSTIPATION; Start 05/10/19 at 10:00 Metoclopramide HCl (Reglan) 10 mg Q6 IV Last administered on 05/11/19at 13:12; Admin Dose 10 MG; Start 05/10/19 at 13:00 Polyethylene Glycol (Miralax) 17 gm DAILY PO Last administered on 05/11/19at 10:11; Admin Dose 17 GM; Start 05/10/19 at 13:30 Rivaroxaban (Xarelto) 15 mg DAILY PO ; Start 05/11/19 at 14:30 Sodium Biphosphate/ Sodium Phosphate (Fleet Enema) 133 ml ONCE ONCE AR ; Start 05/11/19 at 14:30; Stop 05/11/19 at 14:31; Status DANNI CALVILLO May 11, 2019 14:32
[2019-05-11] MEDS: RIVAROXABAN 15 MG TABLET PO SCH (16:21)
[2019-05-12] VITALS: BP 100/58; PULSE 73; RESP 20
[2019-05-12] MEDS: PIPER-TAZO 3.375 GM IV (PMX) 100 ML IVPB SCH ×3 (02:19→18:24)
[2019-05-12 04:00] VITALS: BP 131/66; PULSE 62; RESP 20
[2019-05-12] MEDS: PANTOPRAZOLE (EC) 40 MG TAB PO SCH (06:26)
[2019-05-12] MEDS: METOCLOPRAMIDE 10 MG INJ IV SCH ×3 (06:26→18:24)
[2019-05-12 07:53] VITALS: BP 129/69; PULSE 75; RESP 24
[2019-05-12] MEDS: HYDROmorphONE 0.5 MG/0.5 ML SYG IV PRN (08:05)
[2019-05-12] MEDS: POLYETHYLENE GLYCOL 17 GM PACKET PO SCH (08:17)
[2019-05-12] MEDS: CLOPIDOGREL 75 MG TAB PO SCH (08:17)
[2019-05-12] MEDS: RIVAROXABAN 15 MG TABLET PO SCH (08:18)
[2019-05-12 11:20] VITALS: BP 125/67; PULSE 79; RESP 18
[2019-05-12] MEDS ORDERED: NA PHOSPHATE/BIPHOS 133 ML ENEMA PR PRN (11:30)
--- NOTE | 2019-05-12 11:35 | PN ---
Date/Time of Note Date/Time of Note DATE: 05/12/19 TIME: 11:34 Assessment/Plan VTE Prophylaxis Risk score (from Ns)>0 risk: 8 SCD applied (from [facility]): No SCD contraindicated: other Pharmacological prophylaxis: rivaroxaban Lines/Catheters IV Catheter Type (from [facility]): Peripheral IV Urinary Cath still in place: No Assessment/Plan Hospital Course S: Patient had 2 small bowel movements after enema given yesterday. Still complaining of some mild abdominal discomfort. Tolerating diet. O: VS- see below PE: General: Patient is currently lying in bed, no acute distress. HEENT: Extraocular motor are intact Neck: Supple with full range of motion. No rigidity or meningismus Chest: Nontender Lungs: Clear to auscultation bilaterally no crackles rales or wheezing Heart: Normal S1-S2, Regular rhythm and rate. No murmur, S3, or S4 Abdomen: Soft , surgical dressings clean and dry, not distended. Bowel sounds present. Extremities: Normal to inspection, no edema no cyanosis Genitourinary: R groin surgical dressing clean and dry. A. Operative Report Procedure Date: May 07, 2019 Preoperative Diagnosis 1. Pneumoperitoneum 2. Incarcerated recurrent right inguinal hernia and secondary small bowel obstruction Postoperative Diagnosis Incarcerated recurrent right inguinal hernia. No pneumoperitoneum. Bowel obstruction resolved Operation/Procedure Performed 1. Exploratory laparotomy 2. Repair recurrent right inguinal hernia with extra large plug B. 2D echo: Conclusions: Normal left ventricular systolic function. Normal left ventricular cavity size. Mild concentric left ventricular hypertrophy. Ejection fraction is visually estimated at 60 %. Tissue Doppler/Mitral Doppler indices are indeterminate in this study due to the presence of atrial fibrillation. Possible inferolateral wall hypokinesis, not well seen. Mild to moderate mitral valve regurgitation. The regurgitation jet is eccentrically directed which may underestimate the severity of mitral regurgitation. The estimated Peak RVSP is 22 mmHg plus RA pressure. The IVC is not well visualized. Assessment/Plan: 69 yo man with chronic R sided inguinal hernia presents with incarceration, s/p surgical repair. # incarcerated right-sided inguinal hernia- Hernia nonreducible on admission- The patient had a CXR done after the abdominal CT which was read incorrectly as "pneumoperitoneum of the right hemidiaphragm". Apparently there was a telemetry wire which traces above the R hemidiaphragm and looks a little bit like free air but on the second image the wire is clearly moved and there is no free air-in any event, patient went to surgery on 05/[address] Pride. Got hernia repair. - For now continue diet per surgery recommendations, follow-up further postop recommendations from them -Continue PT and OT -Continue MiraLAX and will order for Fleet enema as needed # Gout- Has difficult walking due to repeated gout attacks- Currently does report improvement in his ambulation though not completely back to normal. He was recently admitted for acute gout attack and required steroid injection. - Currently holding prednisone. Does not appear to be in flare, monitor for now - Again continue PT, OT # History of CHF-no present issues - continue carvedilol, hydralazine, Isordil, statin. - For now continue to hold Lasix at the current time as this could be exacerbating his gout. He does not appear to be acutely decompensated. # Coronary artery disease- Patient status post stent in March 2018 -For now continue Plavix cautiously and monitor for any signs of bleeding # Atrial fibrillation: Appears rate controlled -For now continue rate controlled, continue carvedilol, continue Xarelto # dyslipidemia: Continue statin # hypertension: Continue beta-joseph, again holding Lasix at the current time # chronic kidney disease- Monitor renal function. Avoid NSAIDs. # DVT GI prophylaxis: Back on Xarelto, Protonix Result Diagram: 05/11/1972205/11/19722 Exam/Review of Systems Exam Vitals Vital Signs Date Temp Pulse Resp B/P (MAP) Pulse Ox O2 O2 Flow FiO2 Time Delivery Rate 05/12/19 98.4 79 18 125/67 95 11:20 (86) 05/12/19 Room Air 04:00 05/10/19 2.0 07:39 Intake and Output 05/11/19 05/11/19 05/12/19 1515:00 23:00 07:00 IntakeIntake Total 240 ml 500 ml OutputOutput Total 200 ml 600 ml BalanceBalance 240 ml -200 ml -100 ml Medications Medication Current Medications IV Flush (NS 3 ml) 3 ml PER PROTOCOL IV ; Start 05/06/19 at 20:00 Ondansetron HCl (Zofran Inj) 4 mg Q6H PRN IV NAUSEA/VOMITING Last administered on 05/10/19at 03:16; Admin Dose 4 MG; Start 05/06/19 at 20:00 Hydromorphone HCl (Dilaudid) 0.5 mg Q4H PRN IV .PAIN 7-10 Last administered on 05/12/19 08:05; Admin Dose 0.5 MG; Start 05/06/19 at 20:00 Hydralazine HCl (Apresoline) 10 mg Q8 PO Last administered on 05/12/19 06:26; Admin Dose 10 MG; Start 05/06/19 at 22:00 Carvedilol (Coreg) 12.5 mg BID PO Last administered on 05/12/19 08:18; Admin Dose 12.5 MG; Start 05/06/19 at 22:30 Clopidogrel Bisulfate (plaVIX) 75 mg DAILY PO Last administered on 05/12/19 08:17; Admin Dose 75 MG; Start 05/07/19 at 15:30 Pantoprazole (Protonix Tab) 40 mg DAILY@06 PO Last administered on 05/12/19 06:26; Admin Dose 40 MG; Start 05/10/19 at 06:00 Bisacodyl (Dulcolax) 5 mg DAILY PRN PO CONSTIPATION; Start 05/10/19 at 10:00 Metoclopramide HCl (Reglan) 10 mg Q6 IV Last administered on 05/12/19 06:26; Admin Dose 10 MG; Start 05/10/19 at 13:00 Polyethylene Glycol (Miralax) 17 gm DAILY PO Last administered on 05/12/19 08:17; Admin Dose 17 GM; Start 05/10/19 at 13:30 Rivaroxaban (Xarelto) 15 mg DAILY PO Last administered on 05/12/19 08:18; Admin Dose 15 MG; Start 05/11/19 at 14:30 Piperacillin Sod/ Tazobactam Sod 100 ml @ 25 mls/hr TID@,,18 IVPB Last administered on 05/12/19 08:19; Admin Dose 25 MLS/HR; Start 05/11/19 at 18:00 Sodium Biphosphate/ Sodium Phosphate (Fleet Enema) 133 ml DAILY PRN [place] CONSTIPATION; Start 05/12/19 at 11:30; Status DANNI CALVILLO May 12, 2019 11:35
[2019-05-12] MEDS: SOD CHLORIDE 0.9% 1,000 ML IV SCH ×2 (14:31→22:00)
[2019-05-12] MEDS ORDERED: HYDROCODONE/APAP (7.5/325) TAB PO PRN (15:30)
[2019-05-12] MEDS: HYDROmorphONE 2 MG TAB PO PRN (18:25)
[2019-05-12 20:00] VITALS: BP 118/57; PULSE 82; RESP 20
[2019-05-13] VITALS: BP 126/68; PULSE 61; RESP 20
[2019-05-13] MEDS: METOCLOPRAMIDE 10 MG INJ IV SCH ×4 (00:30→17:47)
[2019-05-13] MEDS: PIPER-TAZO 3.375 GM IV (PMX) 100 ML IVPB SCH ×3 (01:59→17:47)
[2019-05-13] MEDS: HYDROmorphONE 2 MG TAB PO PRN ×3 (02:26→18:24)
[2019-05-13 04:00] VITALS: BP 138/77; PULSE 76; RESP 20
[2019-05-13] MEDS: PANTOPRAZOLE (EC) 40 MG TAB PO SCH (05:44)
[2019-05-13 07:28] VITALS: BP 123/62; PULSE 66; RESP 18
--- NOTE | 2019-05-13 07:38 | QN ---
Documentation Comment Postoperative day #5 Continued symptomatic improvement Abdominal examination is benign Has had several bowel movements Plan: Regular diet. Surgically cleared for [facility] for [facility] facility NACHO CANDELARIO MD May 13, 2019 07:38
[2019-05-13] MEDS: POLYETHYLENE GLYCOL 17 GM PACKET PO SCH (08:57)
[2019-05-13] MEDS: CLOPIDOGREL 75 MG TAB PO SCH (08:57)
[2019-05-13] MEDS: RIVAROXABAN 15 MG TABLET PO SCH (08:57)
[2019-05-13] MEDS: SOD CHLORIDE 0.9% 1,000 ML IV SCH ×2 (08:57→17:27)
[2019-05-13 11:31] VITALS: BP 134/70; PULSE 78; RESP 18
--- NOTE | 2019-05-13 12:58 | PN ---
Date/Time of Note Date/Time of Note DATE: 05/13/19 TIME: 12:55 Assessment/Plan VTE Prophylaxis Risk score (from Ns)>0 risk: 8 SCD applied (from [facility]): No SCD contraindicated: other Pharmacological prophylaxis: rivaroxaban Lines/Catheters [facility]ter Type (from [facility]): Peripheral IV Urinary Cath still in place: No Assessment/Plan Hospital Course S: Patient has less abdominal pain now, tolerating regular diet with regular bowel movements. O: VS- see below PE: General: Patient is currently lying in bed, no acute distress. HEENT: Extraocular motor are intact Neck: Supple with full range of motion. No rigidity or meningismus Chest: Nontender Lungs: Clear to auscultation bilaterally no crackles rales or wheezing Heart: Normal S1-S2, Regular rhythm and rate. No murmur, S3, or S4 Abdomen: Soft , surgical dressings clean and dry, not distended. Bowel sounds present. Extremities: Normal to inspection, no edema no cyanosis Genitourinary: R groin surgical dressing clean and dry. A. Operative Report Procedure Date: May 07, 2019 Preoperative Diagnosis 1. Pneumoperitoneum 2. Incarcerated recurrent right inguinal hernia and secondary small bowel obstruction Postoperative Diagnosis Incarcerated recurrent right inguinal hernia. No pneumoperitoneum. Bowel obstruction resolved Operation/Procedure Performed 1. Exploratory laparotomy 2. Repair recurrent right inguinal hernia with extra large plug B. 2D echo: Conclusions: Normal left ventricular systolic function. Normal left ventricular cavity size. Mild concentric left ventricular hypertrophy. Ejection fraction is visually estimated at 60 %. Tissue Doppler/Mitral Doppler indices are indeterminate in this study due to the presence of atrial fibrillation. Possible inferolateral wall hypokinesis, not well seen. Mild to moderate mitral valve regurgitation. The regurgitation jet is eccentrically directed which may underestimate the severity of mitral regurgitation. The estimated Peak RVSP is 22 mmHg plus RA pressure. The IVC is not well visualized. Assessment/Plan: 69 yo man with chronic R sided inguinal hernia presents with incarceration, s/p surgical repair. # incarcerated right-sided inguinal hernia- Hernia nonreducible on admission- The patient had a CXR done after the abdominal CT which was read incorrectly as "pneumoperitoneum of the right hemidiaphragm". Apparently there was a telemetry wire which traces above the R hemidiaphragm and looks a little bit like free air but on the second image the wire is clearly moved and there is no free air-in any event, patient went to surgery on 05/[address] Pride. Got hernia repair. - For now continue diet per surgery recommendations, follow-up further postop recommendations from them -Continue PT and OT -Continue MiraLAX and Fleet enema as needed # Gout- Has difficult walking due to repeated gout attacks- Currently does report improvement in his ambulation though not completely back to normal. He was recently admitted for acute gout attack and required steroid injection. - Currently holding prednisone. Does not appear to be in flare, monitor for now - Again continue PT, OT # History of CHF-no present issues - continue carvedilol, hydralazine, Isordil, statin. - For now continue to hold Lasix at the current time as this could be exacerbating his gout. He does not appear to be acutely decompensated. # Coronary artery disease- Patient status post stent in March 2018 -For now continue Plavix cautiously and monitor for any signs of bleeding # Atrial fibrillation: Appears rate controlled -For now continue rate controlled, continue carvedilol, continue Xarelto # dyslipidemia: Continue statin #Mild renal insufficiency: Started on IV fluid yesterday -Follow-up BUN/creatinine levels from today # hypertension: Continue beta-joseph, again holding Lasix at the current time # chronic kidney disease- Monitor renal function. Avoid NSAIDs. 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 Result Diagram: 05/13/19 0738 05/11/19 0723 Results 24hrs Laboratory Tests Test 05/13/19 07:38 White Blood Count 4.7 L Red Blood Count 2.98 L Hemoglobin 9.2 L Hematocrit 28.7 L Mean Corpuscular Volume 96.3 Mean Corpuscular Hemoglobin 30.9 Mean Corpuscular Hemoglobin Concent 32.1 Red Cell Distribution Width 13.6 Platelet Count 147 Mean Platelet Volume 9.3 Immature Granulocytes % 1.100 H Neutrophils % 78.2 H Lymphocytes % 10.9 L Monocytes % 7.9 Eosinophils % 1.7 Basophils % 0.2 Nucleated Red Blood Cells % 0.0 Immature Granulocytes # 0.050 H Neutrophils # 3.7 Lymphocytes # 0.5 L Monocytes # 0.4 Eosinophils # 0.1 Basophils # 0.0 Nucleated Red Blood Cells # 0.0 Exam/Review of Systems Exam Vitals Vital Signs Date Temp Pulse Resp B/P (MAP) Pulse Ox O2 O2 Flow FiO2 Time Delivery Rate 05/13/19 98.2 78 18 134/70 97 Nasal 11:31 (91) Cannula 05/10/19 2.0 07:39 Intake and Output 05/12/19 05/12/19 05/13/19 1414:59 22:59 06:59 IntakeIntake Total 400 ml OutputOutput Total 250 ml 400 ml BalanceBalance -250 ml 0 ml Results Results 24hrs Laboratory Tests Test 05/13/19 07:38 White Blood Count 4.7 L Red Blood Count 2.98 L Hemoglobin 9.2 L Hematocrit 28.7 L Mean Corpuscular Volume 96.3 Mean Corpuscular Hemoglobin 30.9 Mean Corpuscular Hemoglobin Concent 32.1 Red Cell Distribution Width 13.6 Platelet Count 147 Mean Platelet Volume 9.3 Immature Granulocytes % 1.100 H Neutrophils % 78.2 H Lymphocytes % 10.9 L Monocytes % 7.9 Eosinophils % 1.7 Basophils % 0.2 Nucleated Red Blood Cells % 0.0 Immature Granulocytes # 0.050 H Neutrophils # 3.7 Lymphocytes # 0.5 L Monocytes # 0.4 Eosinophils # 0.1 Basophils # 0.0 Nucleated Red Blood Cells # 0.0 Medications Medication Current Medications IV Flush (NS 3 ml) 3 ml PER PROTOCOL IV ; Start 05/06/19 at 20:00 Ondansetron HCl (Zofran Inj) 4 mg Q6H PRN IV NAUSEA/VOMITING Last administered on 05/10/19at 03:16; Admin Dose 4 MG; Start 05/06/19 at 20:00 Hydralazine HCl (Apresoline) 10 mg Q8 PO Last administered on 05/13/19at 05:45; Admin Dose 10 MG; Start 05/06/19 at 22:00 Carvedilol (Coreg) 12.5 mg BID PO Last administered on 05/13/19at 08:58; Admin Dose 12.5 MG; Start 05/06/19 at 22:30 Clopidogrel Bisulfate (plaVIX) 75 mg DAILY PO Last administered on 05/13/19at 08:57; Admin Dose 75 MG; Start 05/07/19 at 15:30 Pantoprazole (Protonix Tab) 40 mg DAILY@06 PO Last administered on 05/13/19 05:44; Admin Dose 40 MG; Start 05/10/19 at 06:00 Bisacodyl (Dulcolax) 5 mg DAILY PRN PO CONSTIPATION; Start 05/10/19 at 10:00 Metoclopramide HCl (Reglan) 10 mg Q6 IV Last administered on 05/13/19 11:43; Admin Dose 10 MG; Start 05/10/19 at 13:00 Polyethylene Glycol (Miralax) 17 gm DAILY PO Last administered on 05/13/19 08:57; Admin Dose 17 GM; Start 05/10/19 at 13:30 Rivaroxaban (Xarelto) 15 mg DAILY PO Last administered on 05/13/19 08:57; Admin Dose 15 MG; Start 05/11/19 at 14:30 Piperacillin Sod/ Tazobactam Sod 100 ml @ 25 mls/hr TID@02,10,18 IVPB Last administered on 05/13/19 11:43; Admin Dose 25 MLS/HR; Start 05/11/19 at 18:00 Sodium Biphosphate/ Sodium Phosphate (Fleet Enema) 133 ml DAILY PRN [place] CONSTIPATION; Start 05/12/19 at 11:30 Sodium Chloride 1,000 ml @ 100 mls/hr Q10H IV Last administered on 05/13/19 08:57; Admin Dose 100 MLS/HR; Start 05/12/19 at 12:00 Hydromorphone HCl (Dilaudid) 2 mg Q6H PRN PO SEVERE PAIN LEVEL 7-10 Last administered on 05/13/19 09:11; Admin Dose 2 MG; Start 05/12/19 at 18:00 DANNI HINSON May 13, 2019 12:58
--- NOTE | 2019-05-13 14:31 | PDOCDIS ---
Discharge Instructions CONDITION [id number] Patient Condition: [id number] Stable DANNI HINSON May 13, 2019 14:31
--- NOTE | 2019-05-13 14:35 | DS ---
Date/Time of Note Date/Time of Note DATE: 05/13/19 TIME: 14:31 Discharge Summary Admission/Discharge Info Admit Date/Time May 06, 2019 at 19:50 Discharge Date/Time Discharge Diagnosis # incarcerated right-sided inguinal hernia- Hernia nonreducible on admission- patient went to surgery on 05/[address] Pirde. Got hernia repair. # Gout # History of CHF # Coronary artery disease- Patient status post stent in March 2018 # Atrial fibrillation # dyslipidemia # hypertension #Acute on chronic kidney disease -resolving Patient Condition: Stable Procedures A. Operative Report Procedure Date: May 07, 2019 Preoperative Diagnosis 1. Pneumoperitoneum 2. Incarcerated recurrent right inguinal hernia and secondary small bowel obstruction Postoperative Diagnosis Incarcerated recurrent right inguinal hernia. No pneumoperitoneum. Bowel obstruction resolved Operation/Procedure Performed 1. Exploratory laparotomy 2. Repair recurrent right inguinal hernia with extra large plug B. 2D echo: Conclusions: Normal left ventricular systolic function. Normal left ventricular cavity size. Mild concentric left ventricular hypertrophy. Ejection fraction is visually estimated at 60 %. Tissue Doppler/Mitral Doppler indices are indeterminate in this study due to the presence of atrial fibrillation. Possible inferolateral wall hypokinesis, not well seen. Mild to moderate mitral valve regurgitation. The regurgitation jet is eccentrically directed which may underestimate the severity of mitral regurgitation. The estimated Peak RVSP is 22 mmHg plus RA pressure. The IVC is not well visualized. Hospital Course Patient was admitted and seen by surgery team during this hospital stay. Patient was found with incarcerated right-sided inguinal hernia. This was nonreducible on admission. Surgery team evaluated the patient and underwent surgical repair of the hernia. Patient tolerated the procedure well. He did have some abdominal discomfort afterwards but this slowly improved with enema and medicines to treat constipation. Patient's Xarelto was initially held before the surgery and restarted a few days afterwards. No signs of bleeding. Afterwards he eventually was able to tolerate advancement of diet including regular diet. He was able to ambulate with some assistance, vital signs are stable as well. He had bowel movement. Patient be discharged to [facility] facility today in improved condition. See printed medicine reconciliation sheet for full list of discharge medications. Home Meds Active Scripts Prednisone* (Prednisone*) 10 Mg Tab, 10 MG PO DAILY, #6 TAB take prednisone 2 pills on day 1 and day 2 take 1 pill on day 3 and day 4 Prov:ASIA BOSE NP 04/21/19 Hydrocodone/Acetaminophen ([place] 5-325 Tablet) 1 Each Tablet, 1 TAB PO Q6H PRN for PAIN, #7 TAB Prov:CEM GRIMES MD 04/18/19 Reported Medications Clopidogrel Bisulfate (Clopidogrel) 75 Mg Tablet, 75 MG PO DAILY, #30 TAB 04/18/19 Rivaroxaban* (Xarelto*) 15 Mg Tablet, 15 MG PO DAILY, TAB 04/18/19 Atorvastatin* (Atorvastatin*) 80 Mg Tablet, 80 MG PO QHS, #30 TAB 04/18/19 Carvedilol* (Coreg*) 12.5 Mg Tablet, 12.5 MG PO BID, #60 TAB 04/18/19 Furosemide (Lasix) 20 Mg Tab, 20 MG PO DAILY, TAB 04/18/19 Isosorbide Dinitrate* (Isordil*) 10 Mg Tablet, 10 MG PO TID, TAB 04/18/19 Pantoprazole (Protonix) 40 Mg Tabec, 40 MG PO DAILY, TAB 04/18/19 Hydralazine Hcl* (Hydralazine Hcl*) 10 Mg Tablet, 10 MG PO Q8, #90 TAB 04/18/19 Primary Care Provider Not On Staff Doctor Time spent on discharge: > 30 minutes Pending Labs Laboratory Tests Test 05/13/19 07:38 White Blood Count 4.7 10^3/ul (4.8-10.8) Red Blood Count 2.98 10^6/ul (4.70-6.10) Hemoglobin 9.2 g/dl (14.0-18.0) Hematocrit 28.7 % (42.0-52.0) Mean Corpuscular Volume 96.3 fl (82.0-101.0) Mean Corpuscular Hemoglobin 30.9 pg (29.0-33.0) Mean Corpuscular Hemoglobin Concent 32.1 g/dl (32.0-37.0) Red Cell Distribution Width 13.6 % (11.5-14.5) Platelet Count 147 10^3/UL (140-415) Mean Platelet Volume 9.3 fl (7.4-10.4) Immature Granulocytes % 1.100 % (0.001-0.429) Neutrophils % 78.2 % (39.0-77.0) Lymphocytes % 10.9 % (15.0-51.0) Monocytes % 7.9 % (0.0-11.0) Eosinophils % 1.7 % (0.0-7.0) Basophils % 0.2 % (0.0-2.0) Nucleated Red Blood Cells % 0.0 /100WBC (0.0-0.0) Immature Granulocytes # 0.050 10^3/ul (0.0-0.031) Neutrophils # 3.7 10^3/ul (1.6-7.5) Lymphocytes # 0.5 10^3/ul (0.8-2.9) Monocytes # 0.4 10^3/ul (0.3-0.9) Eosinophils # 0.1 10^3/ul (0.0-0.5) Basophils # 0.0 10^3/ul (0.0-0.1) Nucleated Red Blood Cells # 0.0 10^3/ul (0.0-0.0) DANNI HINSON May 13, 2019 14:35
[2019-05-13 15:35] VITALS: BP 137/66; PULSE 78; RESP 18
[2019-05-13 20:00] VITALS: BP 132/76; PULSE 72; RESP 20
== END 2019-05-13 21:28 | DRG 351 ==
LOC: E/R 17:34 → TEL 19:50 → CANRESERV 20:13 → ICU 05-07 14:00 → TEL 05-07 16:30
PROVIDERS: ADMIT Family Medicine; ATTEND Hospitalist
PROC: 30233R1 Transfusion of Nonautologous Platelets into Peripheral Vein, Percutaneous Approach (ICD-10-PCS; 2019-05-07)
PROC: 0YU50JZ Supplement Right Inguinal Region with Synthetic Substitute, Open Approach (ICD-10-PCS; principal; 2019-05-07 10:00)
DX: K40.31 Unilateral inguinal hernia, with obstruction, without gangrene, recurrent (principal); I13.0 Hypertensive heart and chronic kidney disease with heart failure and stage 1 through stage 4 chronic kidney disease, or unspecified chronic kidney disease; N17.9 Acute kidney failure, unspecified; I11.0 Hypertensive heart disease with heart failure; I48.91 Unspecified atrial fibrillation; I50.9 Heart failure, unspecified; N18.9 Chronic kidney disease, unspecified; R10.32 Left lower quadrant pain; E78.5 Hyperlipidemia, unspecified; I25.10 Atherosclerotic heart disease of native coronary artery without angina pectoris; M1A.9XX0 Chronic gout, unspecified, without tophus (tophi); K40.90 Unilateral inguinal hernia, without obstruction or gangrene, not specified as recurrent; Z79.02 Long term (current) use of antithrombotics/antiplatelets; Z95.5 Presence of coronary angioplasty implant and graft
CPT/HCPCS: 36415; 36430; 71045; 74018; 74177; 80048; 80053; 81001; 83690; 83735; 84100; 84484; 85014; 85018; 85025; 85610; 85730; 86850; 86900; 86901; 86920; 87086; 93005; 93306; 96374; 96375; 97116; 97162; 97165; 97530; 97535; C1781; C9113; J1170; J2001; J2405; J2543; J2765; J3010; J7030; P9035; Q9967

== ENCOUNTER 2019-05-21 23:10 | Inpatient (IN) | payer MEDICAID, OTHER ==
[~2019-05-21] VITALS: Ht 175.3 cm; Wt 80.0 kg
[~2019-05-21 23:10] MED LIST changes: +DOCU-144 PO; +TAMS-14 PO
[2019-05-21 23:11] VITALS: Ht 175.3 cm; Wt 80.0 kg
[2019-05-21] MEDS ORDERED: HYDROmorphONE 0.5 MG/0.5 ML SYG IV STA (23:43)
[2019-05-21] MEDS ORDERED: ONDANSETRON 4 MG INJ IV STA (23:43)
[2019-05-21] MEDS ORDERED: SOD CHLORIDE 0.9% 500 ML IV STA (23:43)
[2019-05-22] MEDS ORDERED: CEFTRIAXONE 1 GM/50 ML (PMX) 50 ML IVPB ONE (03:00)
[2019-05-22] MEDS ORDERED: ONDANSETRON 4 MG INJ IV PRN ×2 (03:30→06:00)
[2019-05-22] MEDS: HYDROmorphONE 1 MG/ML SYG IV PRN ×2 (05:52→13:38)
[2019-05-22] MEDS: SOD CHLORIDE 0.9% 1,000 ML IV SCH ×4 (05:54→23:15)
[2019-05-22] MEDS ORDERED: DOCUSATE SODIUM 100 MG CAP PO PRN (06:00)
[2019-05-22] MEDS ORDERED: NACL 0.9% 3 ML SYG IV SCH (06:00)
[2019-05-22] MEDS ORDERED: ACETAMINOPHEN 325 MG TAB PO PRN (06:00)
[2019-05-22] MEDS ORDERED: BISACODYL (EC) 5 MG TAB PO PRN (06:00)
[2019-05-22 08:15] VITALS: BP 114/66; PULSE 77; RESP 18
[2019-05-22 14:00] VITALS: BP 112/57; PULSE 67; RESP 18
[2019-05-22 20:00] VITALS: BP 101/57; PULSE 69; RESP 17
[2019-05-22] MEDS: ATORVASTATIN 80 MG TAB PO SCH (20:58)
[2019-05-22] MEDS ORDERED: TAMSULOSIN (SR) 0.4 MG CAP PO SCH (21:00)
[2019-05-22 22:23] VITALS: BP 118/58; PULSE 64
[2019-05-22] MEDS ORDERED: PE/SHARK OIL/MO/PETROL 30 GM OINT PR PRN (23:30)
[2019-05-23 02:15] VITALS: BP 125/70; PULSE 84; RESP 18
[2019-05-23 05:42] VITALS: BP 136/62; PULSE 71; RESP 18
[2019-05-23 07:42] VITALS: BP 135/65; PULSE 67; RESP 17
[2019-05-23] MEDS: TAMSULOSIN (SR) 0.4 MG CAP PO SCH (09:00)
[2019-05-23] MEDS: FUROSEMIDE 20 MG TAB PO SCH (09:05)
[2019-05-23] MEDS ORDERED: TAMSULOSIN (SR) 0.4 MG CAP PO ONE (13:00)
[2019-05-23 13:28] VITALS: BP 114/61; PULSE 79; RESP 16
[2019-05-23] MEDS: SOD CHLORIDE 0.9% 1,000 ML IV SCH (13:31)
[2019-05-23 20:15] VITALS: BP 125/60; PULSE 71; RESP 18
[2019-05-23] MEDS: ATORVASTATIN 80 MG TAB PO SCH (21:37)
[2019-05-24] VITALS (12 sets, daily range): BP systolic 115–160; BP diastolic 56–90; PULSE 68–84; RESP 14–26
[2019-05-24] MEDS: FUROSEMIDE 20 MG TAB PO SCH (08:36)
[2019-05-24] MEDS: TAMSULOSIN (SR) 0.4 MG CAP PO SCH (08:36)
[2019-05-24] MEDS: SOD CHLORIDE 0.9% 1,000 ML IV SCH (14:48)
[2019-05-24] MEDS ORDERED: SEVOFLURANE 15 MIN ONE (18:00)
[2019-05-24] MEDS ORDERED: MIDAZOLAM 1 MG/ML 2 ML INJ ONE (18:01)
[2019-05-24] MEDS ORDERED: ETOMIDATE 20 MG INJ ONE (18:45)
[2019-05-24] MEDS ORDERED: CEFAZOLIN 1 GM INJ ONE (18:45)
[2019-05-24] MEDS ORDERED: LIDOCAINE 2% (SDV) 5 ML INJ ONE (18:45)
[2019-05-24] MEDS ORDERED: ONDANSETRON 4 MG INJ ONE (18:45)
[2019-05-24] MEDS ORDERED: hydrALAzine 20 MG INJ IV PRN (19:30)
[2019-05-24] MEDS ORDERED: LABETALOL HCL 20MG INJ IV PRN (19:30)
[2019-05-24] MEDS ORDERED: FENTAnyl 50 MCG/ML VIAL IV PRN (19:30)
[2019-05-24] MEDS ORDERED: ONDANSETRON 4 MG INJ IV PRN (19:30)
[2019-05-24] MEDS ORDERED: MEPERIDINE 25 MG INJ IV PRN (19:30)
[2019-05-24] MEDS ORDERED: DIPHENHYDRAMINE 50 MG INJ IV PRN (19:30)
[2019-05-24] MEDS ORDERED: METOCLOPRAMIDE 10 MG INJ IV PRN (19:30)
[2019-05-24] MEDS: ATORVASTATIN 80 MG TAB PO SCH (20:33)
[2019-05-25 07:46] VITALS: BP 115/83; PULSE 78; RESP 18
[2019-05-25] MEDS: FUROSEMIDE 20 MG TAB PO SCH (09:56)
[2019-05-25] MEDS: TAMSULOSIN (SR) 0.4 MG CAP PO SCH (09:57)
[2019-05-25 13:53] VITALS: BP 122/59; PULSE 74; RESP 18
[2019-05-25 19:47] VITALS: BP 127/59; PULSE 76; RESP 18
[2019-05-25] MEDS: ATORVASTATIN 80 MG TAB PO SCH (20:32)
[2019-05-26 02:06] VITALS: BP 121/58; PULSE 72; RESP 18
[2019-05-26 07:43] VITALS: BP 133/66; PULSE 75; RESP 19
[2019-05-26] MEDS: FUROSEMIDE 20 MG TAB PO SCH (08:54)
[2019-05-26] MEDS: TAMSULOSIN (SR) 0.4 MG CAP PO SCH (08:54)
[2019-05-26] MEDS ORDERED: MAGNESIUM SULFATE 3 GM in DEXTROSE 5% 100 ML IVPB ONE (14:30)
[2019-05-26 14:32] VITALS: BP 100/62; PULSE 50; RESP 20
[2019-05-26 16:03] VITALS: BP 126/77; PULSE 50; RESP 20
[2019-05-26 19:10] VITALS: BP 122/63; PULSE 75; RESP 20
[2019-05-26] MEDS: ATORVASTATIN 80 MG TAB PO SCH (21:07)
== END 2019-05-26 22:15 | disposition home or self-care (01) | DRG 694 ==
LOC: E/R 23:10 → MS1 05-22 03:19
PROVIDERS: ADMIT Family Medicine; ATTEND Internal Medicine
PROC: 0TJ98ZZ Inspection of Ureter, Via Natural or Artificial Opening Endoscopic (ICD-10-PCS; principal; 2019-05-24 17:30)
DX: N13.2 Hydronephrosis with renal and ureteral calculous obstruction (principal); I13.0 Hypertensive heart and chronic kidney disease with heart failure and stage 1 through stage 4 chronic kidney disease, or unspecified chronic kidney disease; E87.1 Hypo-osmolality and hyponatremia; R31.0 Gross hematuria; N17.9 Acute kidney failure, unspecified; N18.9 Chronic kidney disease, unspecified; I50.9 Heart failure, unspecified; N20.0 Calculus of kidney; K40.90 Unilateral inguinal hernia, without obstruction or gangrene, not specified as recurrent; K43.9 Ventral hernia without obstruction or gangrene
CPT/HCPCS: 36415; 71045; 74018; 74176; 74430; 76775; 80048; 80053; 81001; 83690; 83735; 84100; 85025; 85610; 85730; 86850; 86900; 86901; 93005; 96374; 96375; J0690; J0696; J1170; J2250; J2405; J3010; J3475; J7030; J7040